=== PATIENT | female | born 2000 | race Caucasian/White ===

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

== ENCOUNTER 2021-05-22 12:58 | Emergency (ER) | payer OTHER, SELFPAY ==
[2021-05-22 14:00] VITALS: BP 143/92; PULSE 74; RESP 16; TEMP 36.8; O2SAT 98; BMI 35.4
[2021-05-22 14:14] LABS: UTC Strep Screen (Rapid) Positive (Negative)
--- NOTE | 2021-05-22 14:51 | HMH.EDUTC ---
[facility] [place] Disposition Clinical Impression: Strep throat Disposition: Home, Self-Care Condition on Discharge: Good Instructions: Strep Throat, DI for Strep Throat Additional Instructions: *Monitor Temp, Over the counter Motrin or Tylenol as directed/as needed Tylenol every 4 hours and Motrin every 6 hours (as long as your family doctor has told you that you can take it) for fever or pain. and straight to ER if unable to lower temp less than 101.0 after medication given *Warm salt water gargles may help to soothe the throat *Throat Lozenges *Warm fluids like tea with honey may help to soothe the throat *Sleep elevated *Humidifier/Vaporizer *Flonase 2 sprays in each nostril daily but be aware that it may take 2-3 days before you notice improvement If you did not take Penicillin shot or was unable to, start taking antibiotic immediately and make sure that you take it for the FULL length of time although you should start to feel better in 24-48 hours *change toothbrush and toothpaste 24-48 hours after starting to take antibiotics so you do not reinfect yourself Monitor Temp. Tylenol and/or Ibuprofen as needed. ER if fever is no less than 101 despite alternating Tylenol and Ibuprofen * Encourage fluids, water, Gatorade, powerade, pedialyte if /toddler/or child *Cold fluids, popsicles and ice cream may feel good on his throat Follow up IMMEDIATELY for new or worsening symptoms or no Noticeable improvement over the next 48-72 hours. 911 for difficulty breathing or swallowing You were tested for today for COVID19 your test result should be back in the next 24-48 hours, you check your results on line at the [facility] You was given a handout with instructions for Self Quarantine and Self isolation for while you wait on test results and what to do if they are positive If you are positive the Health Dept will be contacting you also Make sure to take your Vitamins Vit. C Vit D and Zinc if you can take them Prescriptions: Fluticasone Propionate [Flonase 50mcg nasal spray 16gm] 1 spr NS DAILY #1 each Transmission Status: Pending to [facility] Cefdinir [Omnicef 300mg Capsule] 300 mg PO BID #20 cap Transmission Status: Pending to [facility] Referrals: Abe Erickson JR, MD [Primary Care Provider] - As needed Forms: Work/School Release Time of Disposition: 14:58 Medical Decision Making - Calvin Inquiry Pt receiving controlled substance: No Calvin was queried for this patient: No Vital Signs: 05/22/21 14:00 Temperature 98.2 F Temperature Source Oral Pulse Rate [Right Brachial] 74 Respiratory Rate 16 Blood Pressure [Right Arm] 143/92 H Blood Pressure Mean [Right Arm] 109 Blood Pressure Source [Right Arm] Automatic Cuff Blood Pressure Position [Right Arm] Sitting 02 Sat by Pulse Oximetry 98 Oxygen Delivery Method Room Air - Lab Data Lab results reviewed: Yes: I reviewed the patient's lab results. Lab Results 05/22/21 13:56: Strep Scn Rapid Clinic Positive A Orders (Tests/Meds): ORDERS Category Date Time Status Covid-19 Nasal PCR ([facility]) Routine Lab 05/22/21 13:[address] [facility] [place] HPI - General Stated complaint: covid symptoms Time Seen by Provider: 05/22/21 14:51 Mode of Arrival: Ambulatory Source of Information: Patient Limitations: No Limitations Description of Symptoms (Recalled from Triage Doc. by RN): PATIENT C/O CHILLS, COUGH, SOA, BODY ACHES, SORE THROAT, CONGESTION, NAUSEA, AND LOSS OF SMELL X 2 DAYS HEENT Symptoms (Recalled from RN notes): Yes Resp Symptoms (Recalled from RN notes): Yes Skin Symptoms (Recalled from RN notes): No MS Symptoms (Recalled from RN notes): Yes Functional Status (Recalled from RN notes): WNL - History of Present Illness Provider Complaint: Patient states that she hasnt felt well in several days States that she has had cough, congestion, sore throat, sinus congestion and pressure and noticed yesterday that she was not able to t
[2021-05-22 15:00] VITALS: BP 143/92; PULSE 74; RESP 16; TEMP 36.8; O2SAT 98
== END 2021-05-22 15:05 | disposition home or self-care (01) ==
PROVIDERS: Emergency Provider Nurse Practitioner; PCP Family Medicine
DX: J02.0 Streptococcal pharyngitis (principal); U07.1 COVID-19
CPT/HCPCS: 87880; 99203; C9803; G0463; U0003; U0005

== ENCOUNTER 2021-07-08 10:41 | Emergency (ER) | payer OTHER, SELFPAY ==
[2021-07-08 11:15] VITALS: BP 118/85; PULSE 72; RESP 20; TEMP 37.1; O2SAT 97; BMI 35.0
[2021-07-08 11:30] LABS: UTC Strep Screen (Rapid) Positive (Negative)
--- NOTE | 2021-07-08 12:00 | HMH.EDUTC ---
[facility] [place] Disposition Clinical Impression: Strep throat Disposition: Home, Self-Care Condition on Discharge: Good Instructions: Strep Throat, DI for Strep Throat, Amoxicillin Additional Instructions: *Monitor Temp, Over the counter Motrin or Tylenol as directed/as needed Tylenol every 4 hours and Motrin every 6 hours (as long as your family doctor has told you that you can take it) for fever or pain. and straight to ER if unable to lower temp less than 101.0 after medication given *Warm salt water gargles may help to soothe the throat *Throat Lozenges *Warm fluids like tea with honey may help to soothe the throat *Sleep elevated *Humidifier/Vaporizer *If you did not take Penicillin shot or was unable to, start taking antibiotic immediately and make sure that you take it for the FULL length of time although you should start to feel better in 24-48 hours *change toothbrush and toothpaste 24-48 hours after starting to take antibiotics so you do not reinfect yourself Monitor Temp. Tylenol and/or Ibuprofen as needed. ER if fever is no less than 101 despite alternating Tylenol and Ibuprofen * Encourage fluids, water, Gatorade, powerade, pedialyte if /toddler/or child *Cold fluids, popsicles and ice cream may feel good on his throat Follow up IMMEDIATELY for new or worsening symptoms or no Noticeable improvement over the next 48-72 hours. 911 for difficulty breathing or swallowing Prescriptions: Amoxicillin [Amoxicillin 500mg Cap] 500 mg PO TID #30 cap Transmission Status: Received by [facility] Referrals: Abe Erickson JR, MD [Primary Care Provider] - As needed Time of Disposition: 12:04 Medical Decision Making - Calvin Inquiry Pt receiving controlled substance: No Calvin was queried for this patient: No Vital Signs: 07/08/21 11:15 Temperature 98.7 F Temperature Source Oral Pulse Rate [Right Brachial] 72 Respiratory Rate 20 Blood Pressure [Right Arm] 118/85 Blood Pressure Mean [Right Arm] 96 Blood Pressure Source [Right Arm] Automatic Cuff Blood Pressure Position [Right Arm] Sitting 02 Sat by Pulse Oximetry 97 Oxygen Delivery Method Room Air - Lab Data Lab results reviewed: Yes: I reviewed the patient's lab results. Lab Results 07/08/21 11:19: Strep Scn Rapid Clinic Positive A [facility] [place] HPI - General Stated complaint: sore throat, cough, congestion, bilateral ear ache Time Seen by Provider: 07/08/21 12:01 Mode of Arrival: Ambulatory Source of Information: Patient Limitations: No Limitations Description of Symptoms (Recalled from Triage Doc. by RN): PATIENT C/O SORE THROAT, COUGH, BILATERAL EAR ACHE, NAUSEA AND RUNNY NOSE THAT STARTED WEDNESDAY HEENT Symptoms (Recalled from RN notes): Yes Resp Symptoms (Recalled from RN notes): No Skin Symptoms (Recalled from RN notes): No MS Symptoms (Recalled from RN notes): No Functional Status (Recalled from RN notes): WNL - History of Present Illness Provider Complaint: Patient states that she started feeling bad over the weekend States that she has been having sore throat, runny nose cough, bilateral ear aches and over all not feeling well States that today she was still feeling bad so she came in - Related Data Previous Rx's Medication Instructions Recorded Cefdinir [Omnicef 300mg Capsule] 300 mg PO BID #20 cap 05/22/21 Fluticasone Propionate [Flonase 1 spr NS DAILY #1 each 05/22/21 50mcg nasal spray 16gm] Amoxicillin [Amoxicillin 500mg 500 mg PO TID #30 cap 07/08/21 Cap] Allergies Allergy/AdvReac Type Severity Reaction Status Date / Time azithromycin [AZITHROMYCIN] Allergy Mild Verified 04/24/20 17:19 - Worker's Comp Is this a Worker's Comp case?: No [facility] History - Hepatitis A Screen Drug use history?: No High risk sexual behaviors?: No History of sexually transmitted infection?: No Currently employed?: No Childcare worker?: No Do you have indoor plumbing?: Yes Do you have electricity?: Yes Attesta
[2021-07-08 12:38] VITALS: BP 118/85; PULSE 72; RESP 20; TEMP 37.1; O2SAT 97
== END 2021-07-08 12:42 | disposition home or self-care (01) ==
PROVIDERS: Emergency Provider Nurse Practitioner; PCP Family Medicine
DX: J02.0 Streptococcal pharyngitis (principal)
CPT/HCPCS: 87880; 99202; G0463

== ENCOUNTER 2021-11-09 10:13 | Emergency (ER) | payer OTHER, SELFPAY ==
[2021-11-09 10:43] VITALS: BP 122/85; PULSE 93; RESP 18; TEMP 36.9; O2SAT 98; BMI 34.3
--- NOTE | 2021-11-09 10:47 | HMH.EDUTC ---
[facility] [place] Disposition Clinical Impression: Viral upper respiratory illness Disposition: Home, Self-Care Condition on Discharge: Good Instructions: Sore Throat Additional Instructions: *Monitor Temp, Over the counter Motrin or Tylenol as directed/as needed Tylenol every 4 hours and Motrin every 6 hours (as long as your family doctor has told you that you can take it) for fever or pain. and straight to ER if unable to lower temp less than 101.0 after medication given *Warm salt water gargles may help to soothe the throat *Throat Lozenges *Warm fluids like tea with honey may help to soothe the throat *Sleep elevated *Humidifier/Vaporizer Your throat swab was sent for culture. Those results are typically sent to your primary care. Be sure to follow up in 2-3 days with your family doctor/primary care physician if no improvement so they can review those result and treat if necessary. If you don?t have a primary care doctor, I recommend you get one but in the mean time, you will have to return to a walk in clinic Follow up IMMEDIATELY for new or worsening symptoms or no Noticeable improvement over the next 48-72 hours. 911 for difficulty breathing or swallowing Referrals: Abe Erickson JR, MD [Primary Care Provider] - As needed Time of Disposition: 10:55 Medical Decision Making - Calvin Inquiry Pt receiving controlled substance: No Calvin was queried for this patient: No Vital Signs: 11/09/21 10:43 Temperature 98.5 F Temperature Source Oral Pulse Rate [Left] 93 H Respiratory Rate 18 Blood Pressure [Right Arm] 122/85 Blood Pressure Mean [Right Arm] 97 02 Sat by Pulse Oximetry 98 - Lab Data Lab results reviewed: Yes: I reviewed the patient's lab results. Lab Results 11/09/21 10:32: Group A Strep Rapid Negative Orders (Tests/Meds): ORDERS Category Date Time Status Strep Screen Confirmation Stat Micro 11/09/21 10:32 Received [facility] [place] HPI - General Stated complaint: congestion, cough, sore throat Time Seen by Provider: 11/09/21 10:48 Mode of Arrival: Ambulatory Source of Information: Patient Limitations: No Limitations Description of Symptoms (Recalled from Triage Doc. by RN): since pt has been having sore throat, cough , congestion HEENT Symptoms (Recalled from RN notes): Yes Resp Symptoms (Recalled from RN notes): Yes Skin Symptoms (Recalled from RN notes): No MS Symptoms (Recalled from RN notes): No Functional Status (Recalled from RN notes): wnl - History of Present Illness Provider Complaint: Patient states that she started having sore throat on Wednesday and it has continued to get worse states that feels like it did when she had strep throat States that she is also having some nasal congestion so she came in to get checked - Related Data Previous Rx's Medication Instructions Recorded Cefdinir [Omnicef 300mg Capsule] 300 mg PO BID #20 cap 05/22/21 Fluticasone Propionate [Flonase 1 spr NS DAILY #1 each 05/22/21 50mcg nasal spray 16gm] Amoxicillin [Amoxicillin 500mg 500 mg PO TID #30 cap 07/08/21 Cap] Allergies Allergy/AdvReac Type Severity Reaction Status Date / Time azithromycin [AZITHROMYCIN] Allergy Mild Verified 11/09/21 10:43 - Worker's Comp Is this a Worker's Comp case?: No [facility] History - Hepatitis A Screen Attestation statement:: This patient has been screened for Hepatitis A risk factors. I have reviewed the patient's past medical history: Yes Medical History: Denies:: Cancer, Diabetes Mellitus Type 1, Diabetes Mellitus Type 2, MRSA Laterality Cases: Bilateral: Tonsillectomy Other Surgeries: Yes: No Previous Surgery, Other Amputation: No Fractures: No Comment: nose - Social History Smoking Status: Never smoker Alcohol Intake: never Alcohol Intake Frequency:: other Substance Use Type: denies use Occupational Status: unemployed Housing: house Household Members: family Family Hx:: Cancer, Hypertension, Diabetes ROS Obtained: Yes All
[2021-11-09 10:50] LABS: Strep Scrn Group A (Rapid) Negative (Negative)
[2021-11-09 11:01] VITALS: BP 122/85; PULSE 93; RESP 18; TEMP 36.9
== END 2021-11-09 11:10 | disposition home or self-care (01) ==
PROVIDERS: Emergency Provider Nurse Practitioner; PCP Family Medicine
DX: J02.9 Acute pharyngitis, unspecified (principal); J06.9 Acute upper respiratory infection, unspecified; Z79.51 Long term (current) use of inhaled steroids; Z82.49 Family history of ischemic heart disease and other diseases of the circulatory system; Z80.9 Family history of malignant neoplasm, unspecified; Z83.3 Family history of diabetes mellitus
CPT/HCPCS: 87430; 99213; G0463

== ENCOUNTER → 2021-12-04 14:57 | Outpatient (CLI) | payer OTHER, SELFPAY ==
--- NOTE | 2021-12-04 14:57 | US_ITS ---
PROCEDURE INFORMATION: Exam: US Right Breast, Complete Exam date and time: 12/04/2021 3:14 PM Age: 21 years old Clinical indication: Breast pain; Right; possible lump TECHNIQUE: Imaging protocol: Complete ultrasound of all four quadrants of the Right breast and the retroareolar regions, including ultrasound of the axilla when performed. COMPARISON: No relevant prior studies available. FINDINGS: Breast: Sonographic images of the right breast including the retroareolar region, all 4 quadrants and the axilla do not demonstrate any solid or cystic masses. No architectural distortion or acoustical shadowing. No skin thickening or axillary adenopathy. IMPRESSION: No sonographic evidence of malignancy. Annual mammographic screening is recommended unless otherwise clinically indicated. Further evaluation of a palpable abnormality should be based on clinical grounds regardless of radiographic findings or lack thereof. ASSESSMENT: BI-RADS Category 1: Negative
== END ==
PROVIDERS: PCP Family Medicine; Visit Provider Nurse Practitioner Obstetrics & Gynecology
DX: N63.10 Unspecified lump in the right breast, unspecified quadrant (principal); N64.4 Mastodynia
CPT/HCPCS: 76641

== ENCOUNTER → 2022-02-13 08:05 | Outpatient (CLI) | payer OTHER, SELFPAY ==
[2022-02-13 09:56] LABS: HCG,Quantitative 1332 mIU/ml (0-5.42)
== END ==
PROVIDERS: PCP Family Medicine; Visit Provider Nurse Practitioner Obstetrics & Gynecology
DX: N92.6 Irregular menstruation, unspecified (principal)
CPT/HCPCS: 36415; 84702

== ENCOUNTER → 2022-02-25 15:16 | Outpatient (CLI) | payer OTHER, SELFPAY ==
[2022-02-25 17:25] LABS: Basophils # 0.1 K/mm3 (0-0.2); Basophils % 0.5 % (0.1-2.0); Eosinophils # 0.1 K/mm3 (0.0-0.4); Hematocrit 38.4 % (37.0-47.0); Hemoglobin 12.4 g/dL (12.2-16.2); Lymphocytes # 1.8 K/mm3 (0.7-4.5); Lymphocytes % 20.3 % (10-50); Mean Corpuscular HGB Conc 32.3 g/dL (31.8-35.4); Mean Corpuscular Hemoglobin 30.9 pg (27.0-31.2); Mean Corpuscular Volume 95.5 fl (81-99); Mean Platelet Volume 8.5 fl (7.4-10.4); Monocytes # 0.4 K/mm3 (0.1-1.0); Monocytes % 4.2 % (1.7-9.3); Neutrophils # 6.7 K/mm3 (1.8-7.8); Platelet Count 255 K/mm3 (142-424); Red Blood Count 4.01 M/mm3 (4.20-5.40); Red Cell Distribution Width 13.8 % (11.5-17.5)
[2022-02-27 09:46] LABS: Hepatitis B Surface Antigen Negative (Negative); Hepatitis C Antibody <0.1 s/co ratio (0.0-0.9)
[2022-02-27 11:16] LABS: HIV Screen 4th Generation wRfx Non Reactive (Non Reactive); Rapid Plasma Reagin Ab Titer Non Reactive (NonRea<1:1)
[2022-02-27 22:36] LABS: Neisseria gonorrhoeae, NAA Negative (Negative)
== END ==
PROVIDERS: Visit Provider Obstetrics & Gynecology
DX: Z34.90 Encounter for supervision of normal pregnancy, unspecified, unspecified trimester (principal)
CPT/HCPCS: 36415; 85025; 86592; 86703; 86762; 86850; 87086; 87340; 87380; 87491; 87591; G0432

== ENCOUNTER 2022-03-04 07:58 | Emergency (ER) | payer OTHER, SELFPAY ==
[2022-03-04 08:04] VITALS: BP 117/71; PULSE 85; RESP 17; TEMP 36.6; O2SAT 94; BMI 33.3
--- NOTE | 2022-03-04 08:10 | PC.NURSE ---
at the bedside
--- NOTE | 2022-03-04 08:13 | HMH.EDGENADL ---
Discharge Plan Disposition Patient Disposition: Home, Self-Care Condition: Good Prescriptions Prescriptions: New nitrofurantoin monohyd/m-cryst [Macrobid] 100 mg capsule 100 mg PO BID 5 Days Qty: 10 0RF Rx Instructions: must administer with a meal/food No Action PNV cmb#95-ferrous fumarate-FA 28 mg iron- 800 mcg tablet 1 tab PO DAILY Referrals Follow up/Referrals: Provider,Referral, MD [Referring] - See instructions Activity Restrictions/Add. Instructions Additional Instructions/Restrictions: At this time was felt you are safe to be discharged home. If new or worsening symptoms please do not hesitate to return to the emergency department. Please call your OB to schedule an appointment for follow-up. Clinical Impressions Clinical Impression: , Vaginal bleeding, UTI (urinary tract infection) Discharge ED Provider: Nas Cruz General Adult HPI General Chief complaint: Vaginal Bleeding Stated complaint: 8 weeks , lower back pain Time Seen by Provider: 03/04/22 09:00 Mode of Arrival: Ambulatory Source of Information: Patient Limitations: No Limitations Description of Symptoms (Recalled from ER Triage Doc. by RN): pt to ed c/o lower back pain, abd cramping and vaginal bleeding. pt states she is approx 8w . pt states she had mild bleeding with her first . pt denies any falls or trauma to her abd. History of Present Illness HPI narrative: Patient is a previously healthy 21-year-old female G2, P1 who presents to the emergency department for evaluation of vaginal bleeding and cramping. Onset was acute occurring earlier this morning. Since then patient has had bleeding while wiping after using the bathroom. Denies passage of tissue or clots. Denies shortness of breath, fevers, other acute symptoms at this time. No dysuria. No vomiting. Related Data Home Medications Medication Instructions Recorded Confirmed vit no.95-ferrous 1 tab PO DAILY 02/25/22 02/25/22 fumarate 28 mg-folic acid 800 mcg tablet Previous Rx's Medication Instructions Recorded nitrofurantoin 100 mg PO BID 5 days #10 caps 03/04/22 monohydrate/macrocrystals 100 mg capsule (Macrobid) Allergies Allergy/AdvReac Type Severity Reaction Status Date / Time azithromycin [AZITHROMYCIN] Allergy Mild Verified 02/25/22 14:41 PFSH PFS Medical History (Updated 03/04/22 @ 10:44 by Nas Cruz MD) Social History (Updated 02/25/22 @ 15:30 by Jocelynn Phillips DO) Smoking Status: Never smoker second hand exposure: No alcohol intake: never substance use type: denies use current occupational status: unemployed household members: family housing: house current occupational exposures/hazards: No ROS Obtained: Yes All systems reviewed & no additional complaints except as documented Physical Exam General General appearance: alert and in no apparent distress Head Head exam: atraumatic and normocephalic Eye Eye exam: Present PERRL and EOMI ENT ENT exam: Present mucous membranes moist Neck Neck exam: Present normal inspection Chest Chest inspection: Present normal inspection Respiratory Respiratory exam: Present normal lung sounds bilaterally; Absent respiratory distress Cardiovascular Cardiovascular exam: Present regular rate and normal rhythm Abdominal Exam Abdominal exam: Present soft; Absent tenderness Extremities Exam Extremities exam: Present normal inspection Neurological Exam Neurological exam: Present alert, oriented X3 and CN II-XII intact Skin Skin exam: Present warm and dry Medical Decision Making Medical Records Medical records reviewed: Yes I reviewed the patient's medical records. Calvin Inquiry Pt receiving controlled substance: No Vital Signs: 03/04/22 08:04 Temperature 97.8 F Temperature Source Oral Pulse Rate [Left Radial] 85 Respiratory Rate 17 Blood Pressure [Right Arm] 117/71 Blood Pressur
--- NOTE | 2022-03-04 08:14 | PC.NURSE ---
called lab for blood collection
--- NOTE | 2022-03-04 08:22 | PC.NURSE ---
lab at the bedside for blood collection
--- NOTE | 2022-03-04 08:33 | US_ITS ---
FINAL REPORT CLINICAL HISTORY: upper abd pain since this AM; r/o ectopic FINDINGS: PELVIC ULTRASOUND A single living intrauterine is present. Cardiac activity is confirmed at 161 beats per minute. Estimated gestational age is 7 weeks 5 days based on the crown-rump length of 14 mm. There is a focus of fluid adjacent to the gestational sac measuring 1.7 x 0.7 cm that may represent a small subchorionic hemorrhage. The left ovary is unremarkable. There is a 2.2 cm complex cyst in the right ovary that may represent a corpus luteum cyst. IMPRESSION: Single living IUP with an estimated gestational age of 7 weeks 5 days. Possible small subchorionic hemorrhage adjacent to the gestational sac. Probable corpus luteum cyst in the right ovary. Reviewed, Interpreted and Dictated by Emilio Orona III, MD Transcribed by Tip Velazquez Authenticated and [facility]
--- NOTE | 2022-03-04 08:34 | PC.NURSE ---
radiology aware of US
[2022-03-04 08:35] LABS: Microscopic, Urine URINE MICROSCOPIC (MICROSCOPIC)
[2022-03-04 08:37] LABS: Basophils % 0.6 % (0.1-2.0); Eosinophils # 0.1 K/mm3 (0.0-0.4); Eosinophils % 1.5 % (0.1-12.0); Hematocrit 38.3 % (37.0-47.0); Hemoglobin 12.2 g/dL (12.2-16.2); Lymphocytes # 1.4 K/mm3 (0.7-4.5); Lymphocytes % 21.6 % (10-50); Mean Corpuscular HGB Conc 31.7 g/dL (31.8-35.4); Mean Corpuscular Hemoglobin 30.2 pg (27.0-31.2); Mean Corpuscular Volume 95.2 fl (81-99); Monocytes # 0.3 K/mm3 (0.1-1.0); Monocytes % 4.6 % (1.7-9.3); Neutrophils # 4.6 K/mm3 (1.8-7.8); Neutrophils % 71.7 % (37.0-80.0); Platelet Count 239 K/mm3 (142-424); Red Blood Count 4.03 M/mm3 (4.20-5.40); Red Cell Distribution Width 13.9 % (11.5-17.5); White Blood Count 6.4 K/mm3 (4.5-13.0)
[2022-03-04 08:38] LABS: Appearance,Urine SL CLOUDY (Clear); Bilirubin,Urine Negative (Negative); Blood, Urine 3+ (Negative); Color,Urine YELLOW (Yellow); Glucose,Urine (UA) Negative (Negative); Ketones,Urine Negative (Negative); Leukocyte Esterase,Urine 1+ (Negative); Nitrate,Urine Negative (Negative); Protein,Urine Negative (Negative)
[2022-03-04 08:50] LABS: Chloride 108 mmol/L (98-107); Sodium 138 mmol/L (136-145)
[2022-03-04 08:52] LABS: Alanine Aminotransferase 15 U/L (12-78); Aspartate Amino Transferase 19 U/L (14-36); Blood Urea Nitrogen 11 mg/dl (7-17); Creatinine Clearance Estimated 201 mL/min (50-200); Estimated Glomerular Filt Rate 127 ml/min (>60); GFR (African American) 154 ML/MIN (>60)
[2022-03-04 08:53] LABS: Albumin Level 4.3 g/dl (3.5-5.0); Albumin/Globulin Ratio 1.3 (1.1-1.8); Alkaline Phosphatase 74 U/L (38-126); Bilirubin,Total 0.1 mg/dl (0.2-1.3); Calcium 9.1 mg/dl (8.4-10.2); Carbon Dioxide 22 mmol/L (22.0-30.0); Globulin 3.3 g/dL (1.3-3.2); Glucose 108 mg/dl (74-100); INR 0.92 (0.9-1.1); Prothrombin Time 10.5 seconds (10.1-12.5); Total Protein,Serum 7.6 g/dl (6.3-8.2)
--- NOTE | 2022-03-04 08:57 | PC.NURSE ---
pt to u/s at this time
[2022-03-04 09:07] LABS: Bacteria,Urine 1+ /lpf
--- NOTE | 2022-03-04 09:09 | US_ITS ---
FINAL REPORT CLINICAL HISTORY: upper R quadrant pain, pain after eating FINDINGS: ULTRASOUND RIGHT UPPER QUADRANT Sonographic imaging of the right upper quadrant was obtained. The pancreas is partially obscured. The liver has increased echogenicity consistent with fatty infiltration. There is sludge within the gallbladder with no evidence of gallstones. There is no gallbladder wall thickening. There is no biliary ductal dilatation. The common duct is normal at 2 mm. Limited images of the right kidney are unremarkable. IMPRESSION: Fatty liver. Sludge within the gallbladder with no evidence of gallstones. Reviewed, Interpreted and Dictated by Emilio Orona III, MD Transcribed by Gricel Adan Authenticated and [facility]
--- NOTE | 2022-03-04 09:09 | PC.NURSE ---
stefanie from ultrasound called at this time, report transvaginal ultrasound is complete, small subchorionic hemorrhage noted but other normal. States pt is c/o RUQ pain and pain after eating, asking if we would want and gallbladder ultrasound while pt up there. Notified ER MD of the above, he gave verbal order for gallbladder ultrasound, order placed in the computer.
[2022-03-04 09:34] LABS: HCG,Quantitative 69712 mIU/ml (0-5.42)
--- NOTE | 2022-03-04 10:11 | PC.NURSE ---
rounded on pt at this time. no needs voiced. updated on POC.
[2022-03-04 11:03] VITALS: BP 116/71; PULSE 64; RESP 16; TEMP 36.7; O2SAT 98
== END 2022-03-04 11:12 | disposition home or self-care (01) ==
PROVIDERS: Emergency Provider Emergency Medicine; PCP Family Medicine
DX: O23.41 Unspecified infection of urinary tract in pregnancy, first trimester (principal); N39.0 Urinary tract infection, site not specified; O46.91 Antepartum hemorrhage, unspecified, first trimester; R10.11 Right upper quadrant pain
CPT/HCPCS: 36415; 76705; 76817; 80053; 81001; 84702; 85025; 85610; 86850; 87086; 99285

== ENCOUNTER → 2022-06-02 12:43 | Outpatient (CLI) | payer OTHER, SELFPAY ==
--- NOTE | 2022-06-02 12:44 | US_ITS ---
FINAL REPORT CLINICAL HISTORY: 20 week anatomy scan FINDINGS: There is a single live intrauterine gestation. Presentation is breech. The cervix is closed and measures 3.96. Placenta is posterior, grade 1. movement is noted. Heart rate is detected at 138 beats per minute. Three-vessel cord with satisfactory umbilical cord insertion. Four-chamber heart is noted. ABDOMEN: Both kidneys are unremarkable. Stomach is unremarkable. SPINE: No anomalies identified. AMNIOTIC FLUID: Appropriate amount. MEASUREMENTS: ULTRASOUND AGE: 20 weeks 6 days. GESTATION AGE: 20 weeks 4 days. ESTIMATED WEIGHT: 381 g GROWTH PERCENTILE: 60 % BPD: 4.90 cm corresponding to 20 weeks 6 days. OFD: 6.23 cm corresponding to 21 weeks 0 days. HC: 17.61 cm corresponding to 20 weeks 1 day. AC: 15.69 cm corresponding to 20 weeks 6 days. FL: 3.49 cm corresponding to 21 weeks 1 day. CEREBELLUM: 2.03 cm corresponding to 20 weeks 5 days. HUMERUS: 3.22 cm corresponding to 20 weeks 6 days. HC/AC: 1.12 CI: 79% FL/BPD: 71% FL/AC: 22% IMPRESSION: Single living IUP with an ultrasound age of 20 weeks 6 days. Reviewed, Interpreted and Dictated by Nano Burrell MD Transcribed by Yolis Sen Authenticated and [facility]
== END ==
PROVIDERS: PCP Family Medicine; Visit Provider Obstetrics & Gynecology
DX: Z34.90 Encounter for supervision of normal pregnancy, unspecified, unspecified trimester (principal); Z3A.20 20 weeks gestation of pregnancy
CPT/HCPCS: 76811

== ENCOUNTER → 2022-07-06 14:11 | Outpatient (CLI) | payer OTHER, SELFPAY ==
[2022-07-09 16:23] LABS: Parvovirus B19, IgG 6.1 index (0.0-0.8); Parvovirus B19, IgM 0.7 index (0.0-0.8)
== END ==
PROVIDERS: PCP Family Medicine; Visit Provider Obstetrics & Gynecology
DX: Z34.90 Encounter for supervision of normal pregnancy, unspecified, unspecified trimester (principal)
CPT/HCPCS: 36415; 86747

== ENCOUNTER → 2022-07-14 10:15 | Outpatient (CLI) | payer OTHER, SELFPAY ==
[2022-07-14 11:06] LABS: Basophils % 0.5 % (0.1-2.0); Eosinophils # 0.1 K/mm3 (0.0-0.4); Eosinophils % 1.2 % (0.1-12.0); Hematocrit 34.2 % (37.0-47.0); Hemoglobin 11.1 g/dL (12.2-16.2); Lymphocytes # 1.8 K/mm3 (0.7-4.5); Lymphocytes % 22.3 % (10-50); Mean Corpuscular HGB Conc 32.6 g/dL (31.8-35.4); Mean Corpuscular Hemoglobin 29.9 pg (27.0-31.2); Mean Corpuscular Volume 91.8 fl (81-99); Mean Platelet Volume 7.5 fl (7.4-10.4); Monocytes # 0.4 K/mm3 (0.1-1.0); Monocytes % 4.4 % (1.7-9.3); Neutrophils # 5.7 K/mm3 (1.8-7.8); Neutrophils % 71.5 % (37.0-80.0); Platelet Count 285 K/mm3 (142-424); Red Blood Count 3.73 M/mm3 (4.20-5.40); Red Cell Distribution Width 14.1 % (11.5-17.5); White Blood Count 7.9 K/mm3 (4.5-13.0)
[2022-07-14 11:16] LABS: Glucose,Fasting 92 mg/dl (74-100)
[2022-07-14 12:56] LABS: Glucose 1 Hour 107 mg/dL (74-100)
== END ==
PROVIDERS: PCP Family Medicine; Visit Provider Obstetrics & Gynecology
DX: Z34.90 Encounter for supervision of normal pregnancy, unspecified, unspecified trimester (principal); Z3A.23 23 weeks gestation of pregnancy
CPT/HCPCS: 36415; 82951; 85025

== ENCOUNTER 2022-08-31 09:51 | Outpatient (CLI) | payer OTHER, SELFPAY ==
[2022-08-31 10:02] VITALS: BMI 35.0
[2022-08-31 10:17] VITALS: BP 111/83; PULSE 99; RESP 17; TEMP 36.9; O2SAT 95; BMI 35.0
[2022-08-31 10:19] LABS: Microscopic, Urine URINE MICROSCOPIC (MICROSCOPIC)
[2022-08-31 10:30] LABS: Appearance,Urine CLEAR (Clear); Blood, Urine Negative (Negative); Color,Urine YELLOW (Yellow); Glucose,Urine (UA) Negative (Negative); Ketones,Urine Negative (Negative); Leukocyte Esterase,Urine 2+ (Negative); Nitrate,Urine Negative (Negative); Protein,Urine Negative (Negative)
[2022-08-31 10:40] LABS: Bilirubin,Urine Negative (Negative)
[2022-08-31 10:42] LABS: Barbiturates Screen,Urine Negative ng/ml (<200)
[2022-08-31 10:43] LABS: Benzodiazepines Screen,Urine Negative ng/ml (<200)
[2022-08-31 10:44] LABS: Amphetamine/Metha Screen,Urine Negative ng/ml (<1000); Methadone Screen,Urine Negative ng/ml (<300)
[2022-08-31 10:45] LABS: Cannabinoid Screen,Urine Negative ng/ml (<50)
[2022-08-31 10:46] LABS: Cocaine Screen,Urine Negative ng/ml (<300); Opiate Screen,Urine Negative ng/ml (<300)
[2022-08-31 10:47] LABS: Phencyclidine Screen,Urine Negative ng/ml (<25)
[2022-08-31 11:11] LABS: Squamous Epithelial Cell,Urine 20-50 #/hpf (0-5)
[2022-08-31 11:12] LABS: Bacteria,Urine Trace /lpf
== END 2022-08-31 11:47 | disposition home or self-care (01) ==
LOC: OBOUT 09:54 → OB 09:54
PROVIDERS: PCP Family Medicine; Visit Provider Obstetrics & Gynecology
DX: O26.893 Other specified pregnancy related conditions, third trimester (principal); Z3A.33 33 weeks gestation of pregnancy; R10.2 Pelvic and perineal pain
CPT/HCPCS: 59025; 80305; 81001; 87086; 96365; G0463

== ENCOUNTER → 2022-09-22 10:22 | Outpatient (CLI) | payer OTHER, SELFPAY | PROVIDERS: Visit Provider Obstetrics & Gynecology | DX: Z34.90 Encounter for supervision of normal pregnancy, unspecified, unspecified trimester (principal) | CPT/HCPCS: 86403 ==

== ENCOUNTER 2022-10-09 05:00 | Inpatient (IN) | payer OTHER, SELFPAY ==
[2022-10-09 05:10] VITALS: BMI 35.4
[2022-10-09 05:59] LABS: Coronavirus 19, PCR Not Detected (NotDetected); Influenza A, PCR Not Detected (NotDetected); Influenza B, PCR Not Detected (NotDetected)
[2022-10-09 06:03] LABS: Microscopic, Urine URINE MICROSCOPIC (MICROSCOPIC)
[2022-10-09 06:05] LABS: Basophils % 0.3 % (0.1-2.0); Eosinophils # 0.1 K/mm3 (0.0-0.4); Eosinophils % 0.7 % (0.1-12.0); Hematocrit 34.3 % (37.0-47.0); Hemoglobin 11.1 g/dL (12.2-16.2); Lymphocytes # 1.7 K/mm3 (0.7-4.5); Lymphocytes % 22.9 % (10-50); Mean Corpuscular HGB Conc 32.5 g/dL (31.8-35.4); Mean Corpuscular Hemoglobin 28.9 pg (27.0-31.2); Mean Corpuscular Volume 88.9 fl (81-99); Mean Platelet Volume 8.4 fl (7.4-10.4); Monocytes # 0.5 K/mm3 (0.1-1.0); Monocytes % 6.2 % (1.7-9.3); Neutrophils # 5.1 K/mm3 (1.8-7.8); Neutrophils % 69.9 % (37.0-80.0); Platelet Count 264 K/mm3 (142-424); Red Blood Count 3.86 M/mm3 (4.20-5.40); Red Cell Distribution Width 15.6 % (11.5-17.5); White Blood Count 7.4 K/mm3 (4.8-10.8)
[2022-10-09 06:14] LABS: Appearance,Urine SL CLOUDY (Clear); Bilirubin,Urine Negative (Negative); Blood, Urine Negative (Negative); Color,Urine YELLOW (Yellow); Glucose,Urine (UA) Negative (Negative); Ketones,Urine Negative (Negative); Leukocyte Esterase,Urine 1+ (Negative); Nitrate,Urine Negative (Negative); Protein,Urine Negative (Negative)
[2022-10-09 06:25] VITALS: BP 124/85; PULSE 77; RESP 18; TEMP 36.8; O2SAT 98; BMI 35.4
[2022-10-09 06:27] LABS: Amphetamine/Metha Screen,Urine Negative ng/ml (<1000)
[2022-10-09 06:28] LABS: Barbiturates Screen,Urine Negative ng/ml (<200); Benzodiazepines Screen,Urine Negative ng/ml (<200)
[2022-10-09 06:29] LABS: Cannabinoid Screen,Urine Negative ng/ml (<50)
[2022-10-09 06:30] LABS: Cocaine Screen,Urine Negative ng/ml (<300); Methadone Screen,Urine Negative ng/ml (<300)
[2022-10-09 06:31] LABS: Opiate Screen,Urine Negative ng/ml (<300)
[2022-10-09 06:32] LABS: Phencyclidine Screen,Urine Negative ng/ml (<25)
[2022-10-09 06:47] LABS: Bacteria,Urine Trace /lpf
--- NOTE | 2022-10-09 07:11 | EXP.OB.APHP ---
OB - H&P: HPI Antepartum History of Present Illness Chief complaint: Elective induction of labor History of present illness: Ms Abrahan Peguero is a 22 yo at 39w0d who presents for elective induction of labor. She reports irregular contractions and pelvic pressure. Baby is very active. GBS negative. History of Present Criteria for establishing EDC:: based on 1st trimester US only care: good care Ultrasounds: normal mid trimester US Obstetrical complications: none Medical complications: none Labs Blood type: O (+) positive Rubella: immune RPR/VDRL: nonreactive GBS status: negative HBsAG: negative PFSH PFS Disclaimer: The information contained in this section may have been updated after the patient was seen, as this information can be updated by other users. Medical History (Updated 10/09/22 @ 07:27 by Jocelynn Phillips DO) Encounter for elective induction of labor Parvovirus B19 infection complicating with 39 completed weeks gestation Screening for genetic disease carrier status Vaginal bleeding affecting early Social History Smoking Status: Never smoker second hand exposure: No alcohol intake: never substance use type: denies use current occupational status: unemployed Travel in the last 8 weeks: None household members: family housing: house current occupational exposures/hazards: No Review of Systems Review of Systems Review of systems:: pertinent systems reviewed and negative unless documented below Meds Home Medications and Allergies Home Medications Medication Instructions Recorded Confirmed Type vit no.95-ferrous 1 tab PO DAILY 02/25/22 10/05/22 History fumarate 28 mg-folic acid 800 mcg tablet New Prescriptions to Start Prescriptions: Allergies Allergy/AdvReac Type Severity Reaction Status Date / Time azithromycin [AZITHROMYCIN] Allergy Mild Verified 10/05/22 12:01 OB - H&P: Exam Physical Exam Vital signs: Temp Pulse Resp BP Pulse Ox 98.3 F 77 18 124/85 98 10/09/22 06:25 10/09/22 06:25 10/09/22 06:25 10/09/22 06:25 10/09/22 06:25 Constitutional no acute distress Routine HEENT Exam Head: Present normocephalic and atraumatic Eye: Absent conjunctivae pink ENT: Present mucous membranes moist Routine Neck Exam Present full ROM Routine Respiratory Exam Present CTA bilaterally and normal respiratory effort Routine Cardiovascular Exam Present RRR Routine Abdominal Exam Present soft (Gravid); Absent tenderness Routine Rectal Exam Patient deferred: visual exam Routine Exam External: Present normal urethra appearance; Absent erythema, tenderness, lesions or lacerations Routine Extremities Exam Present full ROM; Absent edema or calf tenderness Routine Neurological Exam Present alert, oriented X3 and moving all extremities Routine Psychiatric Exam Present normal affect and cooperative Detailed Labor and Delivery Exam Dilation (cm): 4 Effacement (%): 70 Cervix position: posterior station: -3 Consistency: soft Membranes: artificially ruptured (Amniotomy performed with [place] at 0640) Amniotic fluid: clear Baseline heart rate: 120 monitor accelerations: Present monitor decelerations: None half-way variability: Moderate (11-25) Contraction frequency (min): 3 OB - Results Labs Labs: Short CBC 10/09/22 Range/Units 05:30 WBC 7.4 (4.8-10.8) K/mm3 Hgb 11.1 L (12.2-16.2) g/dL Hct 34.3 L (37.0-47.0) % Plt Count 264 (142-424) K/mm3 Urine 10/09/22 Range/Units 05:10 Urine Color Yellow (Yellow) Urine Appearance Sl cloudy (Clear) Urine pH 6.0 (5.0-8.5) Ur Specific [place] 1.020 (1.005-1.030) Urine Protein Negative (Negative) Urine Glucose (UA) Negative (Negative) OB - A/P Antepartum (1) with 39 completed weeks g
--- NOTE | 2022-10-09 09:14 | P.PN_ITS ---
[facility] Disclaimer: The information contained in this section may have been updated after the patient was seen, as this information can be updated by other users. Medical History (Updated 10/09/22 @ 07:27 by Jocelynn Phillips DO) Encounter for elective induction of labor Parvovirus B19 infection complicating with 39 completed weeks gestation Screening for genetic disease carrier status Vaginal bleeding affecting early Social History (Updated 10/09/22 @ 07:24 by Dona Arenas RN) Smoking Status: Never smoker second hand exposure: No alcohol intake: never substance use type: denies use current occupational status: unemployed Travel in the last 8 weeks: None household members: family housing: house current occupational exposures/hazards: No [facility] Anesthesia Checklist Patient Identification Patient Identification: Verbal (Name & ) Structural Data Admitted From: Inpatient Planned Operative Procedure/s: labor epidural Consent for Planned Operative Procedure(s) Verified: Yes Airway Assessment C-Spine Mobility Assessed: Yes TMJ Mobility Assessed: Yes Dentition: Good Dentition Neurological Assessment Level of Consciousness: Awake, Alert and Appropriate Anesthesia Plan Anesthesia Risk discussed: Yes Anesthesia Plan: Verified ASA Class: II Anesthesia Type: Epidural
--- NOTE | 2022-10-09 09:37 | EXP.DN ---
Delivery Note Delivery Date:: 10/09/22 Delivery Time:: 09:21 Anesthesia Type: Epidural Was labor medically induced?: No Induction method: per pitocin protocol Gestational age (weeks): 39 delivered prior to 39 weeks?: No Infant Gender: Male at 1 minute: 8 at 5 minutes: 9 Delivery Procedure:: Mom complete with epidural. Pushed for approximately 5 minutes. Head delivered spontaneously over intact perineum in OA position. No nuchal cord. Shoulder dystocia present and resolved with Angelica maneuver and suprapubic pressure within 15 seconds. Anterior shoulder delivered with gentle downward pressure. Posterior shoulder and remainder of body delivered spontaneously. Baby placed on maternal abdomen, mouth and nares bulb suctioned, warmed/dried and stimulated. Delayed cord clamping was performed for 60 seconds. Cord was clamped and cut by father of baby. Cord blood was obtained. Placenta delivered spontaneously and intact. No lacerations. Mom and baby were skin to skin and doing well after delivery. Live male baby (baby's name is Luis Daniel) APGARs 8, 9 EBL 100 mL Placental Delivery Description: Spontaneous
[2022-10-09 19:57] VITALS: BP 128/89; PULSE 71; RESP 18; TEMP 37.1; O2SAT 98
[2022-10-10 04:35] VITALS: BP 138/92; PULSE 75; RESP 18; TEMP 36.8; O2SAT 99
[2022-10-10 08:19] VITALS: BP 123/86; PULSE 82; RESP 18; TEMP 36.8; O2SAT 99
[2022-10-10 08:36] LABS: Basophils % 0.2 % (0.1-2.0); Eosinophils # 0.1 K/mm3 (0.0-0.4); Eosinophils % 0.8 % (0.1-12.0); Hematocrit 32.1 % (37.0-47.0); Hemoglobin 10.4 g/dL (12.2-16.2); Lymphocytes # 2.6 K/mm3 (0.7-4.5); Lymphocytes % 28.9 % (10-50); Mean Corpuscular HGB Conc 32.4 g/dL (31.8-35.4); Mean Corpuscular Hemoglobin 28.8 pg (27.0-31.2); Mean Corpuscular Volume 88.9 fl (81-99); Mean Platelet Volume 8.9 fl (7.4-10.4); Monocytes # 0.4 K/mm3 (0.1-1.0); Monocytes % 4.5 % (1.7-9.3); Neutrophils % 65.7 % (37.0-80.0); Platelet Count 211 K/mm3 (142-424); Red Blood Count 3.61 M/mm3 (4.20-5.40); Red Cell Distribution Width 15.7 % (11.5-17.5); White Blood Count 9.1 K/mm3 (4.8-10.8)
--- NOTE | 2022-10-10 09:43 | EXP.DC.SUM ---
General Admission date:: 10/09/22 Discharge date: 10/10/22 HPI HPI HPI: PPD # 1 s/p Feeling well. Pain is controlled. Light lochia. Breast feeding. Voiding without difficulty and passing flatus. Tolerating regular diet. Denies fever/chills, chest pain and shortness of breath. No headaches, vision changes or swelling. Hospital Course Hospital Course Hospital Course: Ms Abrahan Peguero is a 22 yo at 39w0d who presents for elective induction of labor. She reports irregular contractions and pelvic pressure. Baby is very active. GBS negative. She underwent induction of labor with Pitocin protocol. She had a normal spontaneous vaginal delivery on 10/09/22 at 0921. She delivered a live male baby (baby's name is Luis Daniel) weighing 7 lb 10 oz. APGARs 8, 9. EBL 100 mL. She was doing well . Pain controlled. Breast feeding. Light lochia. Voiding without difficulty and passing flatus. Tolerating regular diet. Vital signs stable, afebrile. Heart was regular rate and rhythm. Lungs were clear to auscultation. Abdomen was soft, nontender. No lower extremity edema. No calf tenderness to palpation. Normal hospital course. She was discharged home on PPD # 1 and instructed to follow-up in the office in 2 weeks or sooner if needed. Exam Data for Last 24 hours Vital signs and Labs for Last 24 Hours: Temp Pulse Resp BP Pulse Ox 98.3 F 82 18 123/86 99 10/10/22 08:19 10/10/22 08:19 10/10/22 08:19 10/10/22 08:19 10/10/22 08:19 Laboratory Results - last 24 hr 10/10/22 08:15: WBC 9.1, RBC 3.61 L, Hgb 10.4 L, Hct 32.1 L, MCV 88.9, MCH 28.8, MCHC 32.4, RDW 15.7, Plt Count 211, MPV 8.9, Neut % (Auto) 65.7, Lymph % (Auto) 28.9, [place] % (Auto) 4.5, Eos % (Auto) 0.8, Baso % (Auto) 0.2, Neut # (Auto) 6.0, Lymph # (Auto) 2.6, [place] # (Auto) 0.4, Eos # (Auto) 0.1, Baso # (Auto) 0.0 I & O for Last 24 hours: Intake & Output 10/07/22 10/08/22 10/09/22 10/10/22 23:59 23:59 23:59 23:59 Weight 200 lb Microbiology Reports for the Last 24 Hours: Microbiology 10/09/22 05:10 Urine,Clean Catch Urine Culture - Preliminary NO GROWTH AFTER 24 HOURS *Routine HEENT Exam Head: Present normocephalic and atraumatic Eye: Absent conjunctivae pink ENT: Present mucous membranes moist and dentition normal *Routine Neck Exam Neck: Present full ROM *Routine Respiratory Exam Respiratory: Present CTA bilaterally and normal respiratory effort *Routine Cardiovascular Exam Cardiovascular: Present RRR *Routine Abdominal Exam Abdominal: Present soft and normoactive bowel sounds; Absent tenderness or distended Comments: Uterine fundus firm and below umbilicus *Routine Rectal Exam Patient deferred: visual exam *Routine Exam Patient deferred: external exam *Routine Extremities Exam Extremities: Present full ROM; Absent edema or calf tenderness *Routine Neurological Exam Neurological: Present alert, oriented X3 and moving all extremities Routine Psychiatric Exam Psychiatric: Present normal affect Results Data Completed and Pending Labs on day of discharge: Labs from last 24 hours 10/10/22 08:15 WBC 9.1 RBC 3.61 L Hgb 10.4 L Hct 32.1 L MCV 88.9 MCH 28.8 MCHC 32.4 RDW 15.7 Plt Count 211 MPV 8.9 Neut % (Auto) 65.7 Lymph % (Auto) 28.9 [place] % (Auto) 4.5 Eos % (Auto) 0.8 Baso % (Auto) 0.2 Neut # (Auto) 6.0 Lymph # (Auto) 2.6 [place] # (Auto) 0.4 Eos # (Auto) 0.1 Baso # (Auto) 0.0 Preliminary micro results at discharge 10/09/22 05:10 Urine Culture - Preliminary Urine,Clean Catch NO GROWTH AFTER 24 HOURS DS: Diagnosis Discharge Diagnosis (1) with 39 completed weeks gestation: Status: Acute (2) Encounter for elective induction of labor: Status: Acute (3) Status post normal vaginal delivery: Status: Acute (4) Acute blood loss anemia: Status: Acute Meds Home Medications and Allergies Home Medications Medic
== END 2022-10-10 13:49 | disposition home or self-care (01) | DRG 806 ==
PROVIDERS: Admitting Provider Obstetrics & Gynecology; Visit Provider Obstetrics & Gynecology
DX: O80 Encounter for full-term uncomplicated delivery (principal); D62 Acute posthemorrhagic anemia; Z37.0 Single live birth; Z23 Encounter for immunization; Z3A.39 39 weeks gestation of pregnancy; O90.81 Anemia of the puerperium
CPT/HCPCS: 59409; 36415; 59025; 80305; 81001; 85025; 86850; 87086; 94761; C9803; G0283; J0595; U0003; U0005

== ENCOUNTER 2023-05-21 22:25 | Emergency (ER) | payer OTHER, SELFPAY ==
[2023-05-21 22:26] VITALS: BP 149/97; PULSE 117; RESP 19; TEMP 36.8; O2SAT 98; BMI 36.3
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
[2023-05-21 23:20] VITALS: BP 138/90; PULSE 100; RESP 18; TEMP 36.8; O2SAT 99
== END 2023-05-21 23:22 | disposition home or self-care (01) ==
PROVIDERS: Emergency Provider Emergency Medicine; PCP Nurse Practitioner
DX: M54.50 Low back pain, unspecified (principal); V47.6XXA Car passenger injured in collision with fixed or stationary object in traffic accident, initial encounter
CPT/HCPCS: 99283

== ENCOUNTER → 2023-06-24 12:05 | Outpatient (CLI) | payer OTHER, SELFPAY ==
--- NOTE | 2023-06-24 12:25 | XR_ITS ---
FINAL REPORT CLINICAL HISTORY: Back pain COMPARISON: None FINDINGS: Two views of the thoracic spine were obtained. There is no evidence of fracture or dislocation. There is 7 degrees of thoracic scoliosis convex to the left. Vertebrae are normal in height. There is no malalignment. 3 views of the lumbar spine were obtained. There is no evidence of fracture or dislocation. Vertebrae are normal in height. There is no malalignment. An IUD is present. IMPRESSION: No acute bony abnormality. Reviewed, Interpreted and Dictated by Juan Manuel Schwartz MD Transcribed by Bibiana Shrestha Authenticated and [facility]
== END ==
LOC: RAD 12:06
PROVIDERS: PCP Nurse Practitioner; Visit Provider Nurse Practitioner
DX: M54.6 Pain in thoracic spine (principal); M54.50 Low back pain, unspecified
CPT/HCPCS: 72083

== ENCOUNTER 2023-11-15 14:00 | Outpatient (POV) | payer OTHER, SELFPAY ==
[2023-11-15 14:14] VITALS: BP 129/89; PULSE 89; RESP 18; O2SAT 97; BMI 32.9
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
== END 2023-11-15 23:59 | disposition home or self-care (01) ==
LOC: SC.PAIN 14:05
PROVIDERS: PCP Nurse Practitioner; Visit Provider Nurse Practitioner Family
DX: M54.50 Low back pain, unspecified (principal); G89.29 Other chronic pain
CPT/HCPCS: 99202; G0463

== ENCOUNTER 2023-11-27 13:00 | Emergency (ER) | payer OTHER, SELFPAY ==
[2023-11-27 13:45] VITALS: BP 123/75; PULSE 87; RESP 20; TEMP 36.8; O2SAT 98; BMI 30.1
[2023-11-27 14:07] LABS: UTC Strep Screen (Rapid) Negative (Negative)
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
[2023-11-27 15:05] VITALS: BP 123/75; PULSE 87; RESP 20; TEMP 36.8; O2SAT 98
== END 2023-11-27 15:05 | disposition home or self-care (01) ==
PROVIDERS: Emergency Provider Nurse Practitioner Family; PCP Nurse Practitioner
DX: M79.632 Pain in left forearm (principal); T22.112A Burn of first degree of left forearm, initial encounter; L03.114 Cellulitis of left upper limb; J02.9 Acute pharyngitis, unspecified; X15.0XXA Contact with hot stove (kitchen), initial encounter
CPT/HCPCS: 87880; 99212; 99214; G0463

== ENCOUNTER 2023-12-15 09:10 | Outpatient (POV) | payer OTHER, SELFPAY ==
[2023-12-15 09:32] VITALS: BP 132/87; PULSE 89; RESP 16; O2SAT 98; BMI 29.9
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
== END 2023-12-15 23:59 | disposition home or self-care (01) ==
PROVIDERS: PCP Nurse Practitioner; Visit Provider Nurse Practitioner Family
DX: M54.50 Low back pain, unspecified (principal)
CPT/HCPCS: 99212; G0463

== ENCOUNTER 2024-01-13 09:23 | Outpatient (POV) | payer OTHER, SELFPAY ==
[2024-01-13 09:35] VITALS: BP 126/79; PULSE 91; RESP 16; O2SAT 100; BMI 29.2
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
== END 2024-01-13 23:59 | disposition home or self-care (01) ==
PROVIDERS: PCP Nurse Practitioner; Visit Provider Nurse Practitioner Family
DX: M54.50 Low back pain, unspecified (principal); G89.29 Other chronic pain
CPT/HCPCS: 99212; G0463

== ENCOUNTER 2024-01-26 10:00 | Outpatient (RCR) | payer OTHER, SELFPAY ==
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
--- NOTE | 2024-01-12 12:51 | HMH.RHREAS ---
Rehab Reassessment Rehab OP Re-assessment Start: 12/13/23 09:57 Freq: Status: Active Protocol: Document 01/12/24 10:12 VALENTINA (Rec: 01/12/24 12:50 VALENTINA [id number]) E-signed By Donita Munoz, PT Oswestry Index Section 1 Pain Intensity The pain comes and goes and is severe Section 2 Personal Care (Washing,Dresing) my way of washing or dressing even though it causes some pain Section 3 Lifting I can lift heavy weights, but it gives me extra pain Section 4 Walking I cannot walk more than 1/2 mile without increasing pain Section 5 Sitting Pain prevents me from sitting for more than 1/2 hour Section 6 Standing I cannot stand more than 1/2 hour without increasing pain Section 7 Sleeping Because of my pain, my normal night's sleep is less than 6 hours sleep Section 8 Social Life Pain has restricted my social life and I do not go out often Section 9 Traveling Pain restricts me to short necessary journeys under 30 minutes Section 10 Changing Degreee of Pain My pain is gradually getting worse Score and Risk Level Oswestry Sc 28 Oswestry Risk Level Severe Disability Rehab Re-assessment Subjective Subjective Pt reports her LBP is getting worse. Pt reports it still hurts to lift her children. Pt reports: Current pain is 6/10 At worst pain 8/10 Pt reports adherence to HEP Objective Objective Notes Lumbar AROM: FLEX= 90 EXT= WNL R SB= WNL L SB= WNL BLE MMTs: Hip FLEX: 5/5 Hip ABD: 5/5 Hip ADD 5/5 Knee FLEX 5/5 Knee EXT: 5/5 Palpation: 1/4 TTP lumbar paraspinals 1/4 TTP lumbar spine Assessment Progress Assessment Slower Than Expected Assessment Notes This is a reassessment for Abrahan Peguero who presents to PT for c/o LBP. Since IE, pt has been seen for 4 visits that have consisted of modalities prn, education, and therapeutic exercises focusing on ROM and core strength. Pt with fair attendance to scheduled PT visits and reports adherence to HEP. Since IE, pt with improvements in lumbar flexion ROM. Pt still presents with impairments present upon IE. Pt would benefit from skilled outpatient physical therapy to address deficits and achieve LTGs. PT educated pt that since her symptoms have not improved/have worsened since IE, pt needs to refer back to PCP for further medical assessment or possible MRI. Patient goals met ST/5 LTG: In progress Plan Plan Continue POC Refer to PCP d/t worsening symptoms. Frequency of Therapy 2x Duration of therapy 3 weeks Time and Billing Re-Eval Time 10 Re-Eval Billing Units 1 PHYSICIAN CERTIFICATION: I certify the specified therapy services for Abrahan Peguero are required, authorized, and reviewed every 30 days.
== END 2024-01-26 10:05 | disposition home or self-care (01) ==
LOC: PT 10:00
PROVIDERS: Visit Provider Nurse Practitioner Family
DX: M54.50 Low back pain, unspecified (principal)
CPT/HCPCS: 97010; 97014; 97035; 97110; 97140; 97163; 97164; G0283

== ENCOUNTER 2024-01-28 16:12 | Outpatient (CLI) | payer OTHER, SELFPAY ==
--- NOTE | 2024-01-28 16:15 | MR_ITS ---
FINAL REPORT TECHNIQUE: Multiplanar MR without contrast CLINICAL HISTORY: LOW BACK PAIN COMPARISON: None FINDINGS: Sagittal images show normal vertebral height. Alignment is normal. Marrow signal pattern is unremarkable. L1-2: Unremarkable L2-3: Unremarkable L3-4: Unremarkable L4-5: Unremarkable L5-S1: A broad-based left paracentral disc protrusion is present with an associated annular tear. There is mild central canal stenosis. The disc protrusion at this level contacts the left S1 nerve root. IMPRESSION: Mild degenerative change at the L5-S1 level with mild central canal stenosis, and a disc protrusion which contacts the left S1 nerve root. Reviewed, Interpreted and Dictated by Nano Burrell MD Transcribed by Kimberli Murray Authenticated and [facility]
== END 2024-01-28 23:59 | disposition home or self-care (01) ==
LOC: RAD 16:13
PROVIDERS: Visit Provider Nurse Practitioner Family
DX: M54.50 Low back pain, unspecified (principal)
CPT/HCPCS: 72148

== ENCOUNTER 2024-02-23 12:43 | Outpatient (POV) | payer OTHER, SELFPAY ==
[2024-02-23 13:01] VITALS: BP 127/83; PULSE 82; RESP 16; TEMP 36.6; O2SAT 100; BMI 28.3
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
== END 2024-02-23 23:59 | disposition home or self-care (01) ==
LOC: SC.PAIN 12:43
PROVIDERS: PCP Nurse Practitioner; Visit Provider Nurse Practitioner Family
DX: M54.50 Low back pain, unspecified (principal); G89.29 Other chronic pain; M51.16 Intervertebral disc disorders with radiculopathy, lumbar region
CPT/HCPCS: 99212; G0463

== ENCOUNTER 2024-03-07 09:21 | Day surgery (SDC) | payer OTHER, SELFPAY ==
[2024-03-07 09:35] VITALS: BP 129/77; PULSE 76; RESP 16; TEMP 36.8; O2SAT 98; BMI 28.3
[2024-03-07 09:52] VITALS: BP 127/84; PULSE 84; RESP 18; O2SAT 100
[2024-03-07] MEDS: methylPREDNISolone ACETATE 80MG/ML VIAL 80 MG (09:52)
[2024-03-07 09:53] VITALS: BP 127/84; PULSE 78; RESP 18; O2SAT 100
[2024-03-07 10:00] VITALS: BP 120/66; PULSE 65; RESP 16; O2SAT 98
--- NOTE | 2024-03-07 10:00 | EXP.PAIN.PRO ---
Procedure Date: 03/07/24 Time: 10:00 Anesthesiologist:: Rudy Grove CRNA Complications:: None Pre-procedure Diagnosis:: Degenerative disc lumbar spine multilevels. Lumbar radiculopathy. Disc bulge L5-S1. Post-procedure Diagnosis:: Same. Indications for Procedure:: Patient is a pleasant 23-year-old female comes our clinic today for a lumbar epidural steroid injection at the L5-S1 level. Patient describes low lumbar back pain with leg radiculopathy. She rates her pain 7/10. Procedure Details:: Procedure: Lumbar epidural steroid injection under fluoroscopy Informed consent was obtained and the risks and benefits of the procedure were explained to the patient. The patient was taken to the procedure room and noninvasive monitors placed, including noninvasive blood pressure cuff and pulse oximeter. The back was viewed using C-arm Fluoroscopy and prepped using Chloraprep as a cleansing solution and the L5-S1 interspace was palpated. Skin and subcutaneous tissues were anesthetized using lidocaine 1.5% and a 25-gauge needle. After this, an 18-gauge Touhy epidural needle was placed into the L5-S1 interspace and advanced using fluoroscopic guidance and loss of resistance to air until the epidural space was encountered. After confirmation of needle placement in the epidural space, with dye, a solution containing normal saline, 3 mL and Depo-Medrol 80 mg were incrementally injected into the lumbar epidural space. The patient tolerated the procedure well with no complications. The patient was observed in the Pain Clinic and then discharged home neurologically intact. Plan and Disposition:: Patient was discharged without incident.
== END 2024-03-07 10:01 | disposition home or self-care (01) ==
PROVIDERS: PCP Nurse Practitioner; Visit Provider Nurse Anesthetist, Certified Registered
DX: M51.16 Intervertebral disc disorders with radiculopathy, lumbar region (principal); M51.37 Other intervertebral disc degeneration, lumbosacral region
CPT/HCPCS: 62323; J1010

== ENCOUNTER 2024-04-03 13:04 | Outpatient (POV) | payer OTHER, SELFPAY ==
--- NOTE | 2024-04-03 13:28 | EXP.PAIN.SOA ---
[facility] Disclaimer: The information contained in this section may have been updated after the patient was seen, as this information can be updated by other users. Medical History Acute blood loss anemia Encounter for insertion of mirena IUD Mirena IUD inserted 05/23/23 Status post normal vaginal delivery Surgical History No significant past surgical history Family History Other Anemia Diabetes Hyperlipidemia Hypertension Social History Smoking Status: Never smoker second hand exposure: No alcohol intake: never substance use type: denies use current occupational status: unemployed Travel in the last 8 weeks: None household members: family housing: house current occupational exposures/hazards: No PM Subjective & Objective Subjective Subjective:: Patient is a pleasant 23-year-old female who presents today for follow-up of lumbar epidural steroid injection L5-S1 on 03/07/2024. Today she rates her pain a 4 out of 10. Patient does state that the injection did help for at least 2 days and rated it at about 50 to 60% improvement. Patient states however that once it wore off she felt like some of her pain was more aggravated. Patient does state that she feels like overall on the right side it is not as bad as the left. Patient has been prescribed methocarbamol 750 mg 3 times daily as needed in the past from our office along with meloxicam 15 mg daily. Patient states that she never got this prescription. Patient states that she had been tried on the diclofenac in the past however did not really notice significant improvement. Patient is requesting refills on both of these medications. Her Calvin has been reviewed and is appropriate. Review of Systems: General: No recent weight changes, no fever, no sleep disturbances Respiratory: No cough, no shortness of air, no recurring pulmonary infections Cardiovascular/peripheral vascular: No chest pain, no palpitations, no edema, no shortness of breath Gastrointestinal: No new onset incontinence, normal bowel movements reported Genitourinary: No new onset incontinence Musculoskeletal: Low back pain Psychiatric: [Normal mood/affect] Neurological: [Denies weakness in extremities], [denies balance issues] Pain at rest (0-10 scale): 4 Objective Objective:: Physical Exam: General: Alert and oriented x3, no acute distress, pleasant and cooperative Lungs: Respirations even and unlabored, symmetrical chest expansion Eyes: PERRL Musculoskeletal: Flexion and extension of lumbar [spine] somewhat guarded secondary to pain Neurological: Speech clear, no gross sensory deficit Has patient had previous pain injection?: Yes Percent improvement in pain since last injection: 50 to 60% Conservative treatment options previously tried: Home exercise plan Length of treatment: Longer than 12 weeks Meds Home Medications and Allergies Home Medications ?Medication ?Instructions ?Recorded ?Confirmed ?Type phentermine 37.5 mg tablet 37.5 mg PO DAILY 05/13/23 03/07/24 History methocarbamol 750 mg tablet 750 mg PO TID 5 days #15 tabs 05/21/23 03/07/24 Rx levonorgestrel 21 mcg/24 hr (up to 1 device intrauterine ONCE 06/16/23 03/07/24 History 8 years) 52 mg intrauterine device (Mirena) mupirocin 2 % topical ointment 1 applic topical BID #22 grams 11/27/23 03/07/24 Rx sulfamethoxazole 800 1 tab PO Q12H 10 days #20 tabs 11/27/23 03/07/24 Rx mg-trimethoprim 160 mg tablet (Bactrim DS) diclofenac sodium 75 mg 75 mg PO BID #28 tabs 12/15/23 03/07/24 Rx tablet,delayed release meloxicam 15 mg tablet 15 mg PO DAILY #14 tabs 01/13/24 03/07/24 Rx New Prescriptions to Start Prescriptions: Allergies Allergy/AdvReac Type Severity Reaction Status Date / Time azithromycin [AZITHROMYCIN] Allergy Mild Verified 03/07/24 09:36 Assessment and Plan *Assessment and plan (1) Lumbar radiculopathy: Status: Acute Category: Medical Code(s): M54.16 - Radiculopathy, lumbar region (2) Degenerative disc disease, lumbar: Status: Acute Category: Medical Code(s): M51.36 - Other intervertebral disc degeneration, lumbar region (3) Lumbar nerve root impingement: Status: Acute Category: Medical Code(s): M54.16 - Radiculopathy, lumbar region Plan Patient did have improvement following her lumbar epidural however it did seem more temporary only really working for a few days. I did discuss with the patient that I will send in refills on the muscle relaxer and meloxicam and provide a 1 month supply of these medications. Patient will return to clinic in 1 month for reevaluation of symptoms and plan of care. Patient has been instructed to contact the clinic with any concerns before the next appointment. Dr. Buenrostro has reviewed this note and agrees with this plan of care. This note was dictated using voice recognition software and make contain errors or omissions. All injections are used with Lidocaine or Bupivacaine and Depo Medrol.
[2024-04-03 14:06] VITALS: BP 120/73; PULSE 72; RESP 16; O2SAT 100; BMI 28.3
== END 2024-04-03 23:59 | disposition home or self-care (01) ==
PROVIDERS: PCP Nurse Practitioner; Visit Provider Nurse Practitioner Family
DX: M51.16 Intervertebral disc disorders with radiculopathy, lumbar region (principal)
CPT/HCPCS: 99212; G0463

== ENCOUNTER 2024-05-10 11:27 | Outpatient (POV) | payer OTHER, SELFPAY ==
[2024-05-10 12:00] VITALS: BP 119/80; PULSE 77; RESP 16; O2SAT 99; BMI 28.7
--- NOTE | 2024-05-10 12:12 | EXP.PAIN.SOA ---
[facility] Disclaimer: The information contained in this section may have been updated after the patient was seen, as this information can be updated by other users. Medical History Acute blood loss anemia Encounter for insertion of mirena IUD Mirena IUD inserted 05/23/23 Status post normal vaginal delivery Surgical History No significant past surgical history Family History Other Anemia Diabetes Hyperlipidemia Hypertension Social History Smoking Status: Never smoker second hand exposure: No alcohol intake: never substance use type: denies use current occupational status: other Travel in the last 8 weeks: None household members: family housing: house current occupational exposures/hazards: No PM Subjective & Objective Subjective Subjective:: Patient is a pleasant 23-year-old female who presents today for medication refill and follow-up. Today she rates her pain a 5 out of 10. She denies any new trauma or injury. She does state that she still has the chronic low back pain with radiating numbness and tingling going down into her left extremity. Patient is currently managed with methocarbamol 750 mg 3 times a day and meloxicam 15 mg daily. She denies any side effects from these medications and is requesting refills. Her Calvin has been reviewed and is appropriate. Review of Systems: General: No recent weight changes, no fever, no sleep disturbances Respiratory: No cough, no shortness of air, no recurring pulmonary infections Cardiovascular/peripheral vascular: No chest pain, no palpitations, no edema, no shortness of breath Gastrointestinal: No new onset incontinence, normal bowel movements reported Genitourinary: No new onset incontinence Musculoskeletal: Low back pain, left leg pain Psychiatric: [Normal mood/affect] Neurological: [Denies weakness in extremities], [denies balance issues] Pain at rest (0-10 scale): 5 Objective Objective:: Physical Exam: General: Alert and oriented x3, no acute distress, pleasant and cooperative Lungs: Respirations even and unlabored, symmetrical chest expansion Eyes: PERRL Musculoskeletal: Flexion and extension of lumbar [spine] somewhat guarded secondary to pain, [antalgic gait noted] positive left leg raise with decreased sensation to light touch and decreased reflexes Neurological: Speech clear, no gross sensory deficit Has patient had previous pain injection?: No Conservative treatment options previously tried: Home exercise plan Length of treatment: Longer than 12 weeks Meds Home Medications and Allergies Home Medications ?Medication ?Instructions ?Recorded ?Confirmed ?Type phentermine 37.5 mg tablet 37.5 mg PO DAILY 05/13/23 05/10/24 History levonorgestrel 21 mcg/24 hr (up to 1 device intrauterine ONCE 06/16/23 05/10/24 History 8 years) 52 mg intrauterine device (Mirena) mupirocin 2 % topical ointment 1 applic topical BID #22 grams 11/27/23 05/10/24 Rx sulfamethoxazole 800 1 tab PO Q12H 10 days #20 tabs 11/27/23 05/10/24 Rx mg-trimethoprim 160 mg tablet (Bactrim DS) diclofenac sodium 75 mg 75 mg PO BID #28 tabs 12/15/23 05/10/24 Rx tablet,delayed release meloxicam 15 mg tablet 15 mg PO DAILY #30 tabs 04/03/24 05/10/24 Rx methocarbamol 750 mg tablet 750 mg PO TID PRN Muscle Pain 5 04/03/24 05/10/24 Rx days #42 tabs New Prescriptions to Start Prescriptions: Allergies Allergy/AdvReac Type Severity Reaction Status Date / Time azithromycin [AZITHROMYCIN] Allergy Mild Verified 03/07/24 09:36 Assessment and Plan *Assessment and plan (1) Lumbar nerve root impingement: Status: Acute Category: Medical Code(s): M54.16 - Radiculopathy, lumbar region (2) Lumbar radiculopathy: Status: Acute Category: Medical Code(s): M54.16 - Radiculopathy, lumbar region (3) Degenerative disc disease, lumbar: Status: Acute Category: Medical Code(s): M51.36 - Other intervertebral disc degeneration, lumbar region Plan I will refill the patient's meloxicam and methocarbamol and provide a 6-month supply of these medications. I did discuss with the patient in future she may benefit from a left transforaminal injection. We will follow-up with this in 2 weeks. Patient agrees with this plan of care. Patient has been instructed to contact the clinic with any concerns before the next appointment. Dr. Buenrostro has reviewed this note and agrees with this plan of care. This note was dictated using voice recognition software and make contain errors or omissions. All injections are used with Lidocaine or Bupivacaine and Depo Medrol.
== END 2024-05-10 23:59 | disposition home or self-care (01) ==
PROVIDERS: PCP Nurse Practitioner; Visit Provider Nurse Practitioner Family
DX: M51.16 Intervertebral disc disorders with radiculopathy, lumbar region (principal)
CPT/HCPCS: 99212; G0463

== ENCOUNTER 2024-05-29 09:23 | Outpatient (POV) | payer OTHER, SELFPAY ==
[2024-05-29 09:56] VITALS: BP 115/73; PULSE 80; RESP 14; O2SAT 98; BMI 28.3
--- NOTE | 2024-05-29 10:59 | A.OFFVIS_ITS ---
[facility] Disclaimer: The information contained in this section may have been updated after the patient was seen, as this information can be updated by other users. Medical History Acute blood loss anemia Encounter for insertion of mirena IUD Mirena IUD inserted 05/23/23 Status post normal vaginal delivery Surgical History No significant past surgical history Family History Other Anemia Diabetes Hyperlipidemia Hypertension Social History Smoking Status: Never smoker second hand exposure: No alcohol intake: never substance use type: denies use current occupational status: other household members: family housing: house current occupational exposures/hazards: No PM Subjective & Objective Subjective Subjective:: Patient is a pleasant 23-year-old female who presents today for worsening pain. She does rated a 4 out of 10 however does state that it will go up at least a 5 or more with increased activity. She does state the pain is all across her low back and hips. She denies any radiating symptoms into her lower extremities. She does state that she is having difficulty performing activities of daily living such as cooking and cleaning due to the pain. Patient has had the chronic low back pain for months and has progressively worsened. Patient has tried and failed oral medications, heat and ice, topicals, at home stretching and exercise for longer than 12 weeks as well as recent physical therapy. She is currently managed with meloxicam and methocarbamol 750 mg 3 times a day from our office. She does not need any refills on this medication she was given a 6- month supply at her last appointment. Her Calvin has been reviewed and is appropriate. Review of Systems: General: No recent weight changes, no fever, no sleep disturbances Respiratory: No cough, no shortness of air, no recurring pulmonary infections Cardiovascular/peripheral vascular: No chest pain, no palpitations, no edema, no shortness of breath Gastrointestinal: No new onset incontinence, normal bowel movements reported Genitourinary: No new onset incontinence Musculoskeletal: Low back pain, bilateral hip pain Psychiatric: [Normal mood/affect] Neurological: [Denies weakness in extremities], [denies balance issues] Pain at rest (0-10 scale): 5 Objective Objective:: Physical Exam: General: Alert and oriented x3, no acute distress, pleasant and cooperative Lungs: Respirations even and unlabored, symmetrical chest expansion Eyes: PERRL Musculoskeletal: Flexion and extension of lumbar [spine] somewhat guarded secondary to pain, [antalgic gait noted] point tenderness along bilateral SIs with positive bilateral Gwendolyn's, Lizet's, Gaenslen's, compression and distraction exam Neurological: Speech clear, no gross sensory deficit Has patient had previous pain injection?: No Conservative treatment options previously tried: Home exercise plan Length of treatment: Longer than 12 weeks Meds Home Medications and Allergies Home Medications ?Medication ?Instructions ?Recorded ?Confirmed ?Type phentermine 37.5 mg tablet 37.5 mg PO DAILY 05/13/23 05/29/24 History levonorgestrel 21 mcg/24 hr (up to 1 device intrauterine ONCE 06/16/23 05/29/24 History 8 years) 52 mg intrauterine device (Mirena) mupirocin 2 % topical ointment 1 applic topical BID #22 grams 11/27/23 05/29/24 Rx sulfamethoxazole 800 1 tab PO Q12H 10 days #20 tabs 11/27/23 05/29/24 Rx mg-trimethoprim 160 mg tablet (Bactrim DS) diclofenac sodium 75 mg 75 mg PO BID #28 tabs 12/15/23 05/29/24 Rx tablet,delayed release meloxicam 15 mg tablet 15 mg PO DAILY #30 tabs 05/10/24 05/29/24 Rx methocarbamol 750 mg tablet 750 mg PO TID PRN Muscle Pain 5 05/10/24 05/29/24 Rx days #90 tabs New Prescriptions to Start Prescriptions: Allergies Allergy/AdvReac Type Severity Reaction Status Date / Time azithromycin (AZITHROMYCIN) Allergy Mild Verified 03/07/24 09:36 Assessment and Plan *Assessment and plan (1) Bilateral sacroiliitis: Status: Acute Category: Medical Code(s): M46.1 - Sacroiliitis, not elsewhere classified Plan Patient is experiencing worsening pain along the low back and bilateral hips. They did have limited range of motion of the lumbar spine along with point tenderness along bilateral SI joints and a positive bilateral Gwendolyn's, Lizet's, Gaenslen's, compression and distraction exam. I did discuss with the patient that I do believe they would benefit from bilateral SI injections. Risk and benefits were discussed with the patient and they would like to proceed forward with this option. Patient has tried and failed conservative therapy including continued at home stretching exercise for longer than 12 weeks. Patient will be scheduled for bilateral SI injections under fluoroscopy. Patient has not had these injections in the past with our office. Patient has also been experiencing this pain for longer than 3 months. Patient has been instructed to contact the clinic with any concerns before the next appointment. Dr. Buenrostro has reviewed this note and agrees with this plan of care. This note was dictated using voice recognition software and make contain errors or omissions. All injections are used with Lidocaine or Bupivacaine and Depo Medrol.
== END 2024-05-29 23:59 | disposition home or self-care (01) ==
LOC: SC.PAIN 09:24
PROVIDERS: PCP Nurse Practitioner; Visit Provider Nurse Practitioner Family
DX: M46.1 Sacroiliitis, not elsewhere classified (principal); Z73.89 Other problems related to life management difficulty
CPT/HCPCS: 99212; G0463

== ENCOUNTER 2024-06-20 13:02 | Day surgery (SDC) | payer OTHER, SELFPAY ==
[2024-06-20 13:22] VITALS: BP 116/79; PULSE 72; RESP 16; TEMP 36.8; O2SAT 99; BMI 29.2
[2024-06-20] MEDS: BUPIVACAINE 0.25% 10ML INJ 25 MG IJ (13:40)
[2024-06-20 13:41] VITALS: BP 135/84; PULSE 77; RESP 18; O2SAT 98
[2024-06-20] MEDS: methylPREDNISolone ACETATE 80MG/ML VIAL 80 MG (13:41)
[2024-06-20] MEDS: LIDOCAINE 1% 5ML PF VIAL 5 ML (13:41)
[2024-06-20 13:42] VITALS: BP 135/84; PULSE 77; RESP 18; O2SAT 98
--- NOTE | 2024-06-20 13:46 | EXP.PAIN.PRO ---
Procedure Date: 06/20/24 Time: 13:45 Anesthesiologist:: Rudy Grove CRNA Complications:: None Pre-procedure Diagnosis:: Bilateral sacroiliitis Post-procedure Diagnosis:: Same Indications for Procedure:: Patient is a pleasant 23-year-old female comes our clinic today for bilateral sacroiliac joint injection of cortisone and local anesthetic. She describes low lumbar back pain off the midline bilaterally. Bilateral posterior hip pain. Difficulty with lumbar flexion and extension. She rates her pain 7/10. Procedure Details:: Procedure: Bilateral sacroiliac joint injections under fluoroscopy Informed consent was obtained and the risks and benefits of the procedure were explained to the patient.~ The patient was taken to the procedure room and noninvasive monitors were placed including a noninvasive blood pressure cuff and pulse oximeter.~ The patient was placed prone on the procedure table. Both hips were cleansed using Betadine as a cleansing solution. C-arm fluoroscopy was used to view the right sacroiliac joint.~ The skin and subcutaneous tissues were anesthetized using lidocaine 1.5% and a 25-gauge needle.~ After this, a 22-gauge spinal needle was inserted under fluoroscopic guidance into the inferior aspect of the right sacroiliac joint.~ Omnipaque dye was injected and good spread was seen throughout the joint.~ After this, approximately 5 mL of bupivacaine, 0.25% and Depo-Medrol, 40 mg was incrementally injected into the right sacroiliac joint. We then moved to the left sacroiliac joint.~ The skin and subcutaneous tissues were anesthetized using lidocaine 1.5% and a 25-gauge needle.~ After this, a 22-gauge spinal needle was inserted under fluoroscopic guidance into the inferior aspect of the left sacroiliac joint.~ Omnipaque dye was injected and good spread was seen throughout the joint. After this, approximately 5 mL of bupivacaine, 0.25% and Depo-Medrol, 40 mg was incrementally injected into the left sacroiliac joint.~ The patient tolerated the procedure well with no complications. The patient was observed in the Pain Clinic and then was discharged home neurologically intact. Plan and Disposition:: Patient was discharged without incident.
[2024-06-20 13:55] VITALS: BP 111/79; PULSE 70; RESP 16; O2SAT 98
== END 2024-06-20 13:55 | disposition home or self-care (01) ==
PROVIDERS: PCP Nurse Practitioner; Visit Provider Nurse Anesthetist, Certified Registered
DX: M46.1 Sacroiliitis, not elsewhere classified (principal)
CPT/HCPCS: 27096; G0260; J1010

== ENCOUNTER 2024-07-13 10:23 | Outpatient (POV) | payer OTHER, SELFPAY ==
--- NOTE | 2024-07-13 10:36 | EXP.PAIN.SOA ---
[facility] Disclaimer: The information contained in this section may have been updated after the patient was seen, as this information can be updated by other users. Medical History Acute blood loss anemia Encounter for insertion of mirena IUD Mirena IUD inserted 05/23/23 Status post normal vaginal delivery Surgical History No significant past surgical history Family History Other Anemia Diabetes Hyperlipidemia Hypertension Social History Smoking Status: Never smoker second hand exposure: No alcohol intake: never substance use type: denies use current occupational status: other Travel in the last 8 weeks: None household members: family housing: house current occupational exposures/hazards: No PM Subjective & Objective Subjective Subjective:: Patient is a pleasant 23-year-old female who presents today for follow-up of bilateral SI injections on 06/20/2024. Today she rates her pain a 6 out of 10. She states that she really did not notice any additional improvement following the SI injections. She states she still has been having chronic low back pain that does seem more aggravating with bending or increased activity like cleaning around the house. Patient denies any new falls or injuries. Patient also states that the pain is not going into her legs. She states for the most part it stays right there at her low back and does feel like the left side is worse than the right.Patient has tried and failed oral medications, heat and ice, topicals, at home stretching and exercise for longer than 12 weeks as well as recent physical therapy. Patient did have worsening symptoms with the physical therapy. She is currently managed with meloxicam and methocarbamol 750 mg 3 times a day from our office. She does not need any refills at this time. Her Calvin has been reviewed and is appropriate. Review of Systems: General: No recent weight changes, no fever, no sleep disturbances Respiratory: No cough, no shortness of air, no recurring pulmonary infections Cardiovascular/peripheral vascular: No chest pain, no palpitations, no edema, no shortness of breath Gastrointestinal: No new onset incontinence, normal bowel movements reported Genitourinary: No new onset incontinence Musculoskeletal: Low back pain Psychiatric: [Normal mood/affect] Neurological: [Denies weakness in extremities], [denies balance issues] Pain at rest (0-10 scale): 6 Objective Objective:: Physical Exam: General: Alert and oriented x3, no acute distress, pleasant and cooperative Lungs: Respirations even and unlabored, symmetrical chest expansion Eyes: PERRL Musculoskeletal: Flexion and extension of lumbar [spine] somewhat guarded secondary to pain, [antalgic gait noted] positive Kemps test Neurological: Speech clear, no gross sensory deficit Has patient had previous pain injection?: Yes Percent improvement in pain since last injection: Minimal Conservative treatment options previously tried: Home exercise plan Length of treatment: Longer than 12 weeks and Physical Therapy Length of treatment: Completed recent physical therapy Meds Home Medications and Allergies Home Medications ?Medication ?Instructions ?Recorded ?Confirmed ?Type phentermine 37.5 mg tablet 37.5 mg PO DAILY 05/13/23 07/13/24 History levonorgestrel (Mirena) 1 device intrauterine ONCE 06/16/23 07/13/24 History mupirocin 2 % topical ointment 1 applic topical BID #22 grams 11/27/23 07/13/24 Rx sulfamethoxazole 800 1 tab PO Q12H 10 days #20 tabs 11/27/23 07/13/24 Rx mg-trimethoprim 160 mg tablet (Bactrim DS) diclofenac sodium 75 mg 75 mg PO BID #28 tabs 12/15/23 07/13/24 Rx tablet,delayed release meloxicam 15 mg tablet 15 mg PO DAILY #30 tabs 05/10/24 07/13/24 Rx methocarbamol 750 mg tablet 750 mg PO TID PRN Muscle Pain 5 05/10/24 07/13/24 Rx days #90 tabs New Prescriptions to Start Prescriptions: Allergies Allergy/AdvReac Type Severity Reaction Status Date / Time azithromycin (AZITHROMYCIN) Allergy Mild Verified 03/07/24 09:36 Assessment and Plan *Assessment and plan (1) Bilateral sacroiliitis: Status: Acute Category: Medical Code(s): M46.1 - Sacroiliitis, not elsewhere classified (2) Lumbar radiculopathy: Status: Acute Category: Medical Code(s): M54.16 - Radiculopathy, lumbar region (3) Degenerative disc disease, lumbar: Status: Acute Category: Medical Code(s): M51.369 - Other intervertebral disc degeneration, lumbar region without mention of lumbar back pain or lower extremity pain Plan I did review over with the patient due to her worsening pain that she may benefit from updated imaging. We did try a lumbar epidural in the past that did provide 50 to 60% improvement however only lasted for about 2 days. Patient has tried SI injections with no additional improvement. Patient did have positive Kemps test during today's exam. I did discuss with her in future she may benefit from facet injections however I would like to review over updated imaging to confirm there are no other changes or alterations in the levels. Patient agrees with this plan of care. I will send in a 1 month supply of duloxetine 20 mg daily. I will order x-ray imaging and MRI without contrast of her lumbar spine and follow-up with her in 1 month. Patient's last labs in our system from October 2022 do show history of anemia. Patient does state that she has not had any updated labs and that she typically just sees her primary care when she is under the weather. Patient denies any heavy menstruation since having her IUD placed. We will follow-up with this at upcoming visits as well as ordering possible updated labs in order to rule out any other potential causes for the chronic low back pain. Patient has been instructed to contact the clinic with any concerns before the next appointment. Dr. Buenrostro has reviewed this note and agrees with this plan of care. This note was dictated using voice recognition software and make contain errors or omissions. All injections are used with Lidocaine, Bupivacaine and Depo Medrol. Occasionally urine drug screen is needed to verify patient's compliance with our office pain contract. This is ordered based off specific treatments related to chronic pain with the potential to abuse certain medications.
[2024-07-13 10:53] VITALS: BP 107/68; PULSE 72; RESP 16; O2SAT 98; BMI 30.1
== END 2024-07-13 23:59 | disposition home or self-care (01) ==
PROVIDERS: Visit Provider Nurse Practitioner Family
DX: M46.1 Sacroiliitis, not elsewhere classified (principal); M51.16 Intervertebral disc disorders with radiculopathy, lumbar region; Z73.89 Other problems related to life management difficulty
CPT/HCPCS: 99212; G0463

== ENCOUNTER 2024-07-28 23:35 | Emergency (ER) | payer OTHER, SELFPAY ==
[2024-07-28 23:47] VITALS: BP 147/99; PULSE 74; RESP 18; TEMP 36.7; O2SAT 97; BMI 30.4
--- NOTE | 2024-07-28 23:53 | CT_ITS ---
PROCEDURE INFORMATION: Exam: CT Head Without Contrast Exam date and time: 07/29/2024 12:22 AM Age: 23 years old Clinical indication: Pain; Headache; Additional info: Headache 1w TECHNIQUE: Imaging protocol: Computed tomography of the head without contrast. Radiation optimization: All CT scans at this facility use at least one of these dose optimization techniques: automated exposure control; mA and/or kV adjustment per patient size (includes targeted exams where dose is matched to clinical indication); or iterative reconstruction. COMPARISON: No relevant prior studies available. FINDINGS: Brain: There is no acute hemorrhage or obvious acute infarct. Cortical volume loss noted. Scattered hypodensities noted in the bilateral periventricular and deep white matter. Atherosclerosis noted in the bilateral cavernous carotid arteries. Cerebral ventricles: Mildly prominent ventricles, which may represent central volume loss. Paranasal sinuses: Mucous retention cysts noted in the right maxillary sinus. No fluid levels. Mastoid air cells: Visualized mastoid air cells are well aerated. Bones: Unremarkable. No acute fracture. Soft tissues: Unremarkable. IMPRESSION: 1. No acute intracranial disease or hemorrhage. 2. No obvious acute infarct. Please note if the patient's symptoms do not improve, or worsen, consider MRI with diffusion imaging. 3. Chronic deep white matter ischemic and senescent changes noted. Please see above. 4. Chronic paranasal sinus disease
[2024-07-29 00:19] LABS: Urine Pregnancy, HCG Qual. Negative (Negative)
[2024-07-29] MEDS: diphenhydrAMINE 25MG CAPSULE 50 MG PO (00:31)
[2024-07-29] MEDS: KETOROLAC 30MG/ML VIAL 30 MG IM (00:31)
[2024-07-29] MEDS: METOCLOPRAMIDE 10MG TABLET 10 MG PO (00:31)
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
[2024-07-29 01:11] VITALS: BP 131/92; PULSE 77; RESP 18; TEMP 36.9; O2SAT 100
== END 2024-07-29 01:16 | disposition home or self-care (01) ==
PROVIDERS: Emergency Provider Emergency Medicine
DX: R51.9 Headache, unspecified (principal); R42 Dizziness and giddiness; R11.0 Nausea; R25.9 Unspecified abnormal involuntary movements
CPT/HCPCS: 70450; 81025; 96372; 99284; J1885

== ENCOUNTER 2024-08-02 08:49 | Outpatient (CLI) | payer OTHER, SELFPAY ==
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
== END 2024-08-02 23:59 | disposition home or self-care (01) ==
LOC: RAD 08:50
PROVIDERS: Visit Provider Anesthesiology
DX: M51.369 Other intervertebral disc degeneration, lumbar region without mention of lumbar back pain or lower extremity pain (principal); M54.16 Radiculopathy, lumbar region; M46.1 Sacroiliitis, not elsewhere classified
CPT/HCPCS: 72148

== ENCOUNTER 2024-08-03 22:27 | Emergency (ER) | payer OTHER, SELFPAY ==
[2024-08-03 22:29] VITALS: BP 145/91; PULSE 85; RESP 18; TEMP 36.4; O2SAT 97; BMI 30.9
--- NOTE | 2024-08-03 22:57 | CT_ITS ---
PROCEDURE INFORMATION: Exam: CTA Head With Contrast, Venography Exam date and time: 08/04/2024 12:56 AM Age: 23 years old Clinical indication: Pain; Headache; Additional info: Severe intractable headache 2 wks TECHNIQUE: Imaging protocol: Computed tomography angiography of the head with contrast. Exam focused on the veins. 3D rendering (Not supervised by radiologist): MIP and/or 3D reconstructed images were created by the technologist. Radiation optimization: All CT scans at this facility use at least one of these dose optimization techniques: automated exposure control; mA and/or kV adjustment per patient size (includes targeted exams where dose is matched to clinical indication); or iterative reconstruction. Contrast material: ISOVUE; Contrast volume: 100 ml; Contrast route: INTRAVENOUS (IV); COMPARISON: CT ANGIO HEAD 08/04/2024 12:53 AM FINDINGS: Superior sagittal sinus: Patent. Straight sinus: Patent. Transverse sinuses: Patent. Sigmoid sinuses: Patent. Internal jugular veins: Limited visualized internal jugular veins are patent. Brain: No definite mass, mass effect, or midline shift. Cerebral ventricles: No ventriculomegaly. Soft tissues: Unremarkable. IMPRESSION: No large vessel occlusion. No acute intracranial abnormalities.
--- NOTE | 2024-08-03 22:57 | CT_ITS ---
PROCEDURE INFORMATION: Exam: CTA Head With Contrast, Arteriography Exam date and time: 08/04/2024 12:53 AM Age: 23 years old Clinical indication: Pain; Headache; Additional info: Severe intractable headache 2 wks TECHNIQUE: Imaging protocol: Computed tomographic angiography of the head with contrast. Exam focused on the arteries. 3D rendering (Not supervised by radiologist): MIP and/or 3D reconstructed images were created by the technologist. Radiation optimization: All CT scans at this facility use at least one of these dose optimization techniques: automated exposure control; mA and/or kV adjustment per patient size (includes targeted exams where dose is matched to clinical indication); or iterative reconstruction. Contrast material: ISOVUE; Contrast volume: 80 ml; Contrast route: INTRAVENOUS (IV); COMPARISON: CT ANGIO HEAD 08/04/2024 12:53 AM FINDINGS: ANTERIOR CIRCULATION: Right internal carotid artery: Intracranial segment is patent with no significant stenosis. No aneurysm. Right middle cerebral artery: No occlusion or significant stenosis. No aneurysm. Right anterior cerebral artery: No occlusion or significant stenosis. No aneurysm. Left internal carotid artery: Intracranial segment is patent with no significant stenosis. No aneurysm. Left middle cerebral artery: No occlusion or significant stenosis. No aneurysm. Left anterior cerebral artery: No occlusion or significant stenosis. No aneurysm. POSTERIOR CIRCULATION: Right vertebral artery: No occlusion or significant stenosis. No aneurysm. Left vertebral artery: No occlusion or significant stenosis. No aneurysm. Basilar artery: No occlusion or significant stenosis. No aneurysm. Right posterior cerebral artery: No occlusion or significant stenosis. No aneurysm. Left posterior cerebral artery: No occlusion or significant stenosis. No aneurysm. Brain: No definite mass, mass effect, or midline shift. Cerebral ventricles: No ventriculomegaly. Bones/joints: No acute fracture or focal bone lesions. Soft tissues: No masses or swelling. IMPRESSION: No large vessel occlusion. No acute intracranial abnormalities.
--- NOTE | 2024-08-03 22:57 | CT_ITS ---
PROCEDURE INFORMATION: Exam: CT Head Without Contrast Exam date and time: 08/04/2024 12:51 AM Age: 23 years old Clinical indication: Pain; Headache; Additional info: Severe intractable headache 2 wks TECHNIQUE: Imaging protocol: Computed tomography of the head without contrast. Total images: 567 Radiation optimization: All CT scans at this facility use at least one of these dose optimization techniques: automated exposure control; mA and/or kV adjustment per patient size (includes targeted exams where dose is matched to clinical indication); or iterative reconstruction. COMPARISON: CT HEAD/BRAIN WO CON 07/29/2024 12:22 AM FINDINGS: Brain: Normal. No hemorrhage. Unremarkable white matter. No mass effect. The hernadez-white interface is maintained. Cerebral ventricles: No ventriculomegaly. Paranasal sinuses: Polyp or retention cyst base of the right maxillary sinus. Included sinuses are otherwise clear. Mastoid air cells: Visualized mastoid air cells are well aerated. Bones: Unremarkable. No acute fracture. Soft tissues: Unremarkable. IMPRESSION: No acute intracranial process.
[2024-08-03] MEDS: KETOROLAC 30MG/ML VIAL 15 MG IV (23:07)
[2024-08-03] MEDS: LACTATED RINGERS 1000ML 1,000 ML 999 ML IV (23:07)
[2024-08-03] MEDS: droPERidol 5MG/2ML VIAL 2.5 MG IV (23:07)
[2024-08-03] MEDS: MAGNESIUM SULFATE IN WATER 2 GM/50 ML PIGGYBACK IV (23:08)
[2024-08-03] MEDS: ACETAMINOPHEN 500MG TAB 1000 MG PO (23:08)
--- NOTE | 2024-08-03 23:10 | ECG_ITS ---
APPROVED REPORT Exam: Resting ECG HR:60 bpm ECG Measurements Heart Rate 60 AXES DC 147 P 48 QRSd 101 QRS 71 QT 390 T 40 QTc 390 Conclusion SINUS RHYTHM NORMAL ECG UNCONFIRMED REPORT Electronically signed by : GARRY SOSA, 08/05/2024 00:40:21
--- NOTE | 2024-08-03 23:15 | ED_ITS ---
Discharge Plan Disposition Patient Disposition: Home, Self-Care Prescriptions Prescriptions: No Action phentermine 37.5 mg tablet 37.5 mg PO DAILY Mirena 21 mcg/24 hours (8 yrs) 52 mg intrauterine device 1 device intrauterine ONCE diclofenac sodium 75 mg tablet,delayed release (DR/EC) 75 mg PO BID Qty: 28 0RF mupirocin 2 % ointment 1 applic topical BID Qty: 22 0RF sulfamethoxazole-trimethoprim [Bactrim DS] 800-160 mg tablet 1 tab PO Q12H 10 Days Qty: 20 0RF meloxicam 15 mg tablet 15 mg PO DAILY Qty: 30 5RF methocarbamol 750 mg tablet 750 mg PO TID PRN (Reason: Muscle Pain) 5 Days Qty: 90 5RF duloxetine 20 mg capsule,delayed release(DR/EC) 20 mg PO DAILY Qty: 30 0RF Referrals Follow up/Referrals: Arielle Stark APRN [Primary Care Provider] - See instructions Activity Restrictions/Add. Instructions Additional Instructions/Restrictions: Recommend continued outpatient workup for headache including Opthomology/neurology/PCP. Please return to the emergency department if you develop any new or worsening symptoms or become concerned for your health. Clinical Impressions Clinical Impression: Headache Qualifiers: Headache type: new daily persistent Qualified Code(s): G44.52 - New daily persistent headache (NDPH) Print Language Print Language: Ukrainian Discharge ED Provider: Mick Alan General Adult HPI <Radha Neves DO - Last Filed: 08/03/24 23:20> General Chief complaint: Headache Stated complaint: Migraine with vomiting Time Seen by Provider: 08/03/24 22:47 Mode of Arrival: Ambulatory Source of Information: Patient Limitations: No Limitations Description of Symptoms (Recalled from ER Triage Doc. by RN): pt to ED with c/o migraine all day. pt reports consistant migrainees for the past 2 weeks. pt reports dizziness an blurry vision as well. pt has takern tylenol and migraine meds History of Present Illness HPI narrative: This patient is a 23-year-old female who denies significant past medical history presenting to the emergency department for evaluation with concern for severe intractable headache for 2 weeks. Patient states its progressively worsened. She denies any prior history of headaches or migraines in the past. She states that she was evaluated here 07/24/2024 and had some improvement after medications, however her symptoms have progressively worsened since then and now she is requesting just to be put to sleep because her head is hurting so bad. She has photophobia, phonophobia, and states that her vision feels like is intermittent blurry. She also states that her neck muscles feel tired and sore. She has had no fevers, cough, congestion, or infectious symptoms. Related Data Home Medications ?Medication ?Instructions ?Recorded ?Confirmed phentermine 37.5 mg tablet 37.5 mg PO DAILY 05/13/23 07/13/24 levonorgestrel (Mirena) 1 device intrauterine ONCE 06/16/23 07/13/24 Previous Rx's ?Medication ?Instructions ?Recorded mupirocin 2 % topical ointment 1 applic topical BID #22 grams 11/27/23 sulfamethoxazole 800 1 tab PO Q12H 10 days #20 tabs 11/27/23 mg-trimethoprim 160 mg tablet (Bactrim DS) diclofenac sodium 75 mg 75 mg PO BID #28 tabs 12/15/23 tablet,delayed release meloxicam 15 mg tablet 15 mg PO DAILY #30 tabs 05/10/24 methocarbamol 750 mg tablet 750 mg PO TID PRN Muscle Pain 5 05/10/24 days #90 tabs duloxetine 20 mg capsule,delayed 20 mg PO DAILY #30 caps 07/13/24 release Allergies Allergy/AdvReac Type Severity Reaction Status Date / Time azithromycin (AZITHROMYCIN) Allergy Mild Verified 03/07/24 09:36 [facility] <Radha Neves DO - Last Filed: 08/03/24 23:20> [facility] Disclaimer: The information contained in this section may have been updated after the patient was seen, as this information can be updated by other users. Medical History Encounter for insertion of mirena IUD Status post normal vaginal delivery Acute blood loss anemia Surgical History No significant past surgical history Family History Other Anemia Diabetes Hyperlipidemia Hypertension Social History Smoking Status: Unknown if ever smoked second hand exposure: No alcohol intake: never substance use type: denies use current occupational status: other Travel in the last 8 weeks: None household members: family housing: house current occupational exposures/hazards: No Have you lived/traveled outside US in past 30 days?: No Contact w/someone who lives/traveled outside US past 30 days?: No Exposure to someone with infectious disease in past 14 days?: No Do you have a fever (greater than 100.4 F or 38 C)?: No Have you tested positive for COVID-19: No Exposed to someone with COVID-19 in past 14 days?: No Do you have a sore throat?: No Do you have a cough?: No Do you have any weakness?: No Do you have any diarrhea?: No Are you experiencing any unusual bleeding?: No Do you have any muscle aches/pain?: No Do you have any abdominal pain?: No Are you experiencing loss of taste or smell?: No Other Medical History Have you received the Flu Vaccine for this season: No Have you received the Pneumonia Vaccine: No <Radha Neves DO - Last Filed: 08/03/24 23:20> ROS Obtained: Yes All systems reviewed & no additional complaints except as documented Physical Exam <Radha Neves DO - Last Filed: 08/03/24 23:20> General General appearance: alert and in no apparent distress Head Head exam: atraumatic and normocephalic Eye Eye exam: Present normal appearance, PERRL and EOMI ENT ENT exam: Present normal exam, normal oropharynx, mucous membranes moist and normal external ear exam Neck Neck exam: Present normal inspection, full ROM and trachea midline; Absent tenderness Chest Chest inspection: Present normal inspection and symmetric chest wall rise; Absent tenderness Respiratory Respiratory exam: Present normal lung sounds bilaterally; Absent respiratory distress, wheezes, stridor or accessory muscle use Cardiovascular Cardiovascular exam: Present regular rate and normal rhythm Abdominal Exam Abdominal exam: Present soft; Absent distention, tenderness or guarding Extremities Exam Extremities exam: Present normal inspection, full ROM and normal capillary refill; Absent tenderness or edema Back Exam Back exam: Present normal inspection and full ROM; Absent tenderness Neurological Exam Neurological exam: Present alert, oriented X3, CN II-XII intact and normal gait; Absent motor sensory deficit Psychiatric Psychiatric exam: Present normal affect and normal mood Skin Skin exam: Present warm and dry Medical Decision Making <Radha Neves, DO - Last Filed: 08/03/24 23:20> Medical Records Medical records reviewed: Yes I reviewed the patient's medical records. Screening: Per USPSTF and CDC recommendations, given the prevalence of disease in our region, it is our hospital?s policy to screen for HIV and viral Hepatitis for all patients aged 18 and over and those with ongoing risk factors. Calvin Inquiry Pt receiving controlled substance: No Vital Signs: 08/03/24 22:29 08/04/24 01:37 Temperature 97.6 F 97.8 F Temperature Source Oral Oral Pulse Rate 98 H Pulse Rate [Left Radial] 85 Respiratory Rate 18 16 Blood Pressure 110/81 Blood Pressure [Right Arm] 145/91 H Blood Pressure Mean [Right Arm] 109 Blood Pressure Source [Right Arm] Automatic Cuff Blood Pressure Position [Right Arm] Sitting 02 Sat by Pulse Oximetry 97 Oxygen Delivery Method Room Air Room Air Lab Data Lab results reviewed: Yes I reviewed the patient's lab results. Lab Results 08/03/24 23:33: WBC 8.2, RBC 4.41, Hgb 13.7, Hct 40.5, MCV 91.8, MCH 31.1, MCHC 33.8, RDW 13.0, Plt Count 254, MPV 10.3, Neut % (Auto) 61.0, Lymph % (Auto) 30.5, [place] % (Auto) 6.3, Eos % (Auto) 1.5, Baso % (Auto) 0.5, Neut # (Auto) 5.0, Lymph # (Auto) 2.5, [place] # (Auto) 0.5, Eos # (Auto) 0.1, Baso # (Auto) 0.0, Sodium 142, Potassium 3.9, Chloride 106, Carbon Dioxide 27, Anion Gap 12.9, BUN 14, Creatinine 0.60, Estimated Creat Clear 184, Estimated GFR 125, Est GFR ( Amer) 151, Glucose 82, Calcium 9.7, Magnesium 2.3, Total Bilirubin 0.3, AST 24, ALT 18, Alkaline Phosphatase 77, Total Protein 7.4, Albumin 4.8, Globulin 2.6, Albumin/Globulin Ratio 1.8, TSH 1.87, Thyroxine (T4) 10.9, Serum HCG, Qual Negative 08/03/24 23:33 08/03/24 23:33 Orders (Tests/Meds): ED MEDICATIONS Discontinued Medications Generic Name Dose Route Start Last Admin Trade Name Nielsq PRN Reason Stop Dose Admin Acetaminophen 1,000 mg 08/03/24 22:54 08/03/24 23:08 Acetaminophen 500mg Tab PO 08/03/24 22:55 1,000 mg ONCE ONE Administration Droperidol 2.5 mg 08/03/24 22:54 08/03/24 23:07 Droperidol 5mg/2ml Vial IV 08/03/24 22:55 2.5 mg ONCE ONE Administration Lactated Ringer's 1,000 mls @ 999 mls/hr 08/03/24 22:54 08/03/24 23:07 Lactated Ringer's 1000 Ml Bag IV 08/03/24 23:54 999 mls/hr .Q1H1M ONE Administration Magnesium Sulfate 2 gm in 50 mls @ 50 mls/hr 08/03/24 22:54 08/03/24 23:08 Magnesium Sulfate 2gm/50ml Premix IV 08/03/24 23:53 50 mls/hr ONCE ONE Administration Iopamidol 180 ml 08/04/24 01:02 08/04/24 01:03 Iopamidol-370 (76%);100ml Bottle IV 08/04/24 01:03 180 ml ONCE ONE Administration Ketorolac Tromethamine 15 mg 08/03/24 22:54 08/03/24 23:07 Ketorolac 30mg/Ml Vial IV 08/03/24 22:55 15 mg ONCE ONE Administration Sodium Chloride 100 ml 08/04/24 01:02 08/04/24 01:03 0.9 % Sodium Chloride 50 Ml Vial IV 08/04/24 01:03 100 ml ONCE ONE Administration Sodium Chloride 10 ml 08/04/24 01:02 08/04/24 01:03 Sodium Chloride 0.9% 10ml Syr (Rad Only) IV 09/03/24 01:01 10 ml NEEDED PRN Administration Maintain IV Site ORDERS Category Date Time Status CT Venogram head Stat Cat Scan 08/03/24 22:[address] angio head Stat Cat Scan 08/03/24 22:[address] head/brain wo con Stat Cat Scan 08/03/24 22:57 Completed Complete Blood Count Auto Diff Stat Lab 08/03/24 23:33 Completed Comprehensive Metabolic Panel Stat Lab 08/03/24 23:33 Completed HIV Combo Stat Lab 08/03/24 23:33 Received Hepatitis C Ab Qual. W/ RFX Stat Lab 08/03/24 23:33 Received MAG [Magnesium] Stat Lab 08/03/24 23:33 Completed Serum [HCG Qualitative, Serum] Stat Lab 08/03/24 23:33 Completed T4 (Thyroxine) Stat Lab 08/03/24 23:33 Completed TSH [Thyroid Stimulating Hormone] Stat Lab 08/03/24 23:33 Completed ECG Data Tracing #1: I reviewed this ECG and interpreted as documented below: Normal sinus rhythm with a ventricular rate of [address] changes concerning for ischemia. Normal axis and intervals. ECG initial impression date: 08/03/24 ECG initial impression time: 23:12 Medical Decision Narrative: In summary, this patient is a 23-year-old female presenting to the Emergency Department for evaluation of progressively worsening headache over the last 2 weeks. Differential diagnoses considered include but are not limited to migraine, tension headache, rebound headache, cavernous sinus thrombosis, intracranial mass. Ruling out the most morbid conditions drove assessment. I reviewed patient's past medical records and noted evaluation here 07/24/2024 for similar symptoms as detailed in HPI. She had IM and oral migraine cocktail at that time with improvement in her symptoms, and she had a negative CT head without contrast. She was discharged home. On exam, the patient is sitting upright in no acute distress. She is neurologically intact without focal deficit, she has no meningismus. She is afebrile and nontoxic-appearing with reassuring vital signs, though she does appear uncomfortable workup included CBC, CMP, magnesium, TSH, T4, test, CT head without contrast, CT angiogram of the head, CT venogram of the head. She was given migraine cocktail of IV droperidol, Toradol, magnesium, fluids. Patient care was signed out to the oncoming provider, Dr. Alan, pending workup and disposition. <Mick Alan MD - Last Filed: 08/04/24 01:49> Vital Signs: 08/03/24 22:29 08/04/24 01:37 Temperature 97.6 F 97.8 F Temperature Source Oral Oral Pulse Rate 98 H Pulse Rate [Left Radial] 85 Respiratory Rate 18 16 Blood Pressure 110/81 Blood Pressure [Right Arm] 145/91 H Blood Pressure Mean [Right Arm] 109 Blood Pressure Source [Right Arm] Automatic Cuff Blood Pressure Position [Right Arm] Sitting 02 Sat by Pulse Oximetry 97 Oxygen Delivery Method Room Air Room Air Lab Data Lab Results 08/03/24 23:33: WBC 8.2, RBC 4.41, Hgb 13.7, Hct 40.5, MCV 91.8, MCH 31.1, MCHC 33.8, RDW 13.0, Plt Count 254, MPV 10.3, Neut % (Auto) 61.0, Lymph % (Auto) 30.5, [place] % (Auto) 6.3, Eos % (Auto) 1.5, Baso % (Auto) 0.5, Neut # (Auto) 5.0, Lymph # (Auto) 2.5, [place] # (Auto) 0.5, Eos # (Auto) 0.1, Baso # (Auto) 0.0, Sodium 142, Potassium 3.9, Chloride 106, Carbon Dioxide 27, Anion Gap 12.9, BUN 14, Creatinine 0.60, Estimated Creat Clear 184, Estimated GFR 125, Est GFR ( Amer) 151, Glucose 82, Calcium 9.7, Magnesium 2.3, Total Bilirubin 0.3, AST 24, ALT 18, Alkaline Phosphatase 77, Total Protein 7.4, Albumin 4.8, Globulin 2.6, Albumin/Globulin Ratio 1.8, TSH 1.87, Thyroxine (T4) 10.9, Serum HCG, Qual Negative Orders (Tests/Meds): ED MEDICATIONS Discontinued Medications Generic Name Dose Route Start Last Admin Trade Name Beverly PRN Reason Stop Dose Admin Acetaminophen 1,000 mg 08/03/24 22:54 08/03/24 23:08 Acetaminophen 500mg Tab PO 08/03/24 22:55 1,000 mg ONCE ONE Administration Droperidol 2.5 mg 08/03/24 22:54 08/03/24 23:07 Droperidol 5mg/2ml Vial IV 08/03/24 22:55 2.5 mg ONCE ONE Administration Lactated Ringer's 1,000 mls @ 999 mls/hr 08/03/24 22:54 08/03/24 23:07 Lactated Ringer's 1000 Ml Bag IV 08/03/24 23:54 999 mls/hr .Q1H1M ONE Administration Magnesium Sulfate 2 gm in 50 mls @ 50 mls/hr 08/03/24 22:54 08/03/24 23:08 Magnesium Sulfate 2gm/50ml Premix IV 08/03/24 23:53 50 mls/hr ONCE ONE Administration Iopamidol 180 ml 08/04/24 01:02 08/04/24 01:03 Iopamidol-370 (76%);100ml Bottle IV 08/04/24 01:03 180 ml ONCE ONE Administration Ketorolac Tromethamine 15 mg 08/03/24 22:54 08/03/24 23:07 Ketorolac 30mg/Ml Vial IV 08/03/24 22:55 15 mg ONCE ONE Administration Sodium Chloride 100 ml 08/04/24 01:02 08/04/24 01:03 0.9 % Sodium Chloride 50 Ml Vial IV 08/04/24 01:03 100 ml ONCE ONE Administration Sodium Chloride 10 ml 08/04/24 01:02 08/04/24 01:03 Sodium Chloride 0.9% 10ml Syr (Rad Only) IV 09/03/24 01:01 10 ml NEEDED PRN Administration Maintain IV Site ORDERS Category Date Time Status CT Venogram head Stat Cat Scan 08/03/24 22:[address] angio head Stat Cat Scan 08/03/24 22:[address] head/brain wo con Stat Cat Scan 08/03/24 22:57 Completed Complete Blood Count Auto Diff Stat Lab 08/03/24 23:33 Completed Comprehensive Metabolic Panel Stat Lab 08/03/24 23:33 Completed HIV Combo Stat Lab 08/03/24 23:33 Received Hepatitis C Ab Qual. W/ RFX Stat Lab 08/03/24 23:33 Received MAG [Magnesium] Stat Lab 08/03/24 23:33 Completed Serum [HCG Qualitative, Serum] Stat Lab 08/03/24 23:33 Completed T4 (Thyroxine) Stat Lab 08/03/24 23:33 Completed TSH [Thyroid Stimulating Hormone] Stat Lab 08/03/24 23:33 Completed Medical Decision Narrative: In summary, this patient is a 23-year-old female presenting to the Emergency Department for evaluation of progressively worsening headache over the last 2 weeks. Differential diagnoses considered include but are not limited to migraine, tension headache, rebound headache, cavernous sinus thrombosis, intracranial mass. Ruling out the most morbid conditions drove assessment. I reviewed patient's past medical records and noted evaluation here 07/24/2024 for similar symptoms as detailed in HPI. She had IM and oral migraine cocktail at that time with improvement in her symptoms, and she had a negative CT head without contrast. She was discharged home. On exam, the patient is sitting upright in no acute distress. She is neurologically intact without focal deficit, she has no meningismus. She is afebrile and nontoxic-appearing with reassuring vital signs, though she does appear uncomfortable workup included CBC, CMP, magnesium, TSH, T4, test, CT head without contrast, CT angiogram of the head, CT venogram of the head. She was given migraine cocktail of IV droperidol, Toradol, magnesium, fluids. Patient care was signed out to the oncoming provider, Dr. Alan, pending workup and disposition. Dayanna RAE: I assumed care of the patient at the time of handoff from the prior provider. On reassessment patient ports marked symptomatic treatment of headache and request to be discharged. CT imaging interpreted by me shows negative CT Noncon, no evidence of aneurysm on CTA, no evidence of thrombosis on CTV. Interactive discussion was had with patient and family regarding presentation. Recommend she continue follow-up with PCP for further workup including ophthalmology/neurology/MRI evaluation. Return precautions given. Patient discharged in stable condition. Critical Care <Radha Neves, - Last Filed: 08/03/24 23:20> Critical Care Time Critical Care Time: No
[2024-08-03 23:42] LABS: Basophils % 0.5 % (0.1-2.0); Eosinophils # 0.1 K/mm3 (0.0-0.4); Eosinophils % 1.5 % (0.1-12.0); Hematocrit 40.5 % (37.0-47.0); Hemoglobin 13.7 g/dL (12.2-16.2); Lymphocytes # 2.5 K/mm3 (0.7-4.5); Lymphocytes % 30.5 % (10-50); Mean Corpuscular HGB Conc 33.8 g/dL (31.8-35.4); Mean Corpuscular Hemoglobin 31.1 pg (27.0-31.2); Mean Corpuscular Volume 91.8 fl (81-99); Mean Platelet Volume 10.3 fl (7.4-10.4); Monocytes # 0.5 K/mm3 (0.1-1.0); Monocytes % 6.3 % (1.7-9.3); Platelet Count 254 K/mm3 (142-424); Red Blood Count 4.41 M/mm3 (4.20-5.40); White Blood Count 8.2 K/mm3 (4.8-10.8)
[2024-08-03 23:54] LABS: Alanine Aminotransferase 18 U/L (12-78); Albumin Level 4.8 g/dl (3.5-5.0); Albumin/Globulin Ratio 1.8 (1.1-1.8); Alkaline Phosphatase 77 U/L (38-126); Anion Gap 12.9 mEq/L (5-15); Aspartate Amino Transferase 24 U/L (14-36); Bilirubin,Total 0.3 mg/dl (0.2-1.3); Blood Urea Nitrogen 14 mg/dl (7-17); Calcium 9.7 mg/dl (8.4-10.2); Carbon Dioxide 27 mmol/L (22.0-30.0); Chloride 106 mmol/L (98-107); Creatinine Clearance Estimated 184 mL/min (50-200); Estimated Glomerular Filt Rate 125 ml/min (>60); GFR (African American) 151 ML/MIN (>60); Globulin 2.6 g/dL (1.3-3.2); Glucose 82 mg/dl (74-100); Magnesium 2.3 mg/dl (1.6-2.3); Potassium 3.9 mmoL/L (3.5-5.1); Sodium 142 mmol/L (136-145); Total Protein,Serum 7.4 g/dl (6.3-8.2)
[2024-08-04 00:32] LABS: Thyroid Stimulating Hormone 1.87 uIU/mL (0.465-4.68)
[2024-08-04 00:37] LABS: HCG Qualitative, Serum Negative (Negative)
[2024-08-04 00:42] LABS: T4 (Thyroxine) 10.9 ug/dl (5.53-11.0)
[2024-08-04] MEDS: IOPAMIDOL-370 (76%);100ML BOTTLE 180 ML IV (01:03)
[2024-08-04] MEDS: SODIUM CHLORIDE 0.9% 10ML SYR (RAD ONLY) 10 ML IV (01:03)
[2024-08-04] MEDS: 0.9 % SODIUM CHLORIDE 50 ML VIAL 100 ML IV (01:03)
[2024-08-04 01:37] VITALS: BP 110/81; PULSE 98; RESP 16; TEMP 36.6; O2SAT 100
[2024-08-04 10:57] LABS: Hepatitis C Ab Qual. W/ RFX NEGATIVE (Negative)
[2024-08-04 13:16] LABS: HIV Combo NEGATIVE (Negative)
== END 2024-08-04 01:40 | disposition home or self-care (01) ==
PROVIDERS: Emergency Medicine; Emergency Provider Emergency Medicine; PCP Nurse Practitioner
DX: G44.52 New daily persistent headache (NDPH) (principal); M54.2 Cervicalgia; H53.143 Visual discomfort, bilateral; H53.8 Other visual disturbances
CPT/HCPCS: 70450; 70496; 80053; 83735; 84436; 84443; 84703; 85025; 86803; 87389; 93005; 96361; 96365; 96374; 96375; 99285; J1790; J1885; J3475; J7120; Q9967

== ENCOUNTER 2024-08-11 14:03 | Outpatient (POV) | payer OTHER, SELFPAY ==
--- NOTE | 2024-08-11 14:06 | A.OFFVIS_ITS ---
[facility] Disclaimer: The information contained in this section may have been updated after the patient was seen, as this information can be updated by other users. Medical History Encounter for insertion of mirena IUD Status post normal vaginal delivery Acute blood loss anemia Surgical History No significant past surgical history Family History Other Anemia Diabetes Hyperlipidemia Hypertension Social History Smoking Status: Unknown if ever smoked second hand exposure: No alcohol intake: never substance use type: denies use current occupational status: other Travel in the last 8 weeks: None household members: family housing: house current occupational exposures/hazards: No Have you lived/traveled outside [place] in past 30 days?: No Contact w/someone who lives/traveled outside US past 30 days?: No Exposure to someone with infectious disease in past 14 days?: No Do you have a fever (greater than 100.4 F or 38 C)?: No Have you tested positive for COVID-19: No Exposed to someone with COVID-19 in past 14 days?: No Do you have a sore throat?: No Do you have a cough?: No Do you have any weakness?: No Do you have any diarrhea?: No Are you experiencing any unusual bleeding?: No Do you have any muscle aches/pain?: No Do you have any abdominal pain?: No Are you experiencing loss of taste or smell?: No PM Subjective & Objective Subjective Subjective:: Patient is a pleasant 23-year-old female who presents today for follow-up of MRI of lumbar spine. Today she rates her pain a 5 out of 10. She denies any new trauma or injury. She is stating that she still has the chronic back pain however it has not been as severe. Patient was also at her last appointment send in a prescription of duloxetine 20 mg daily. Patient is also managed with meloxicam 15 mg daily and methocarbamol 750 mg 3 times a day. She denies any side effects from these medications her Calvin has been reviewed and is appropriate. Review of Systems: General: No recent weight changes, no fever, no sleep disturbances Respiratory: No cough, no shortness of air, no recurring pulmonary infections Cardiovascular/peripheral vascular: No chest pain, no palpitations, no edema, no shortness of breath Gastrointestinal: No new onset incontinence, normal bowel movements reported Genitourinary: No new onset incontinence Musculoskeletal: Low back pain Psychiatric: [Normal mood/affect] Neurological: [Denies weakness in extremities], [denies balance issues] Pain at rest (0-10 scale): 5 Objective Objective:: Physical Exam: General: Alert and oriented x3, no acute distress, pleasant and cooperative Lungs: Respirations even and unlabored, symmetrical chest expansion Eyes: PERRL Musculoskeletal: Flexion and extension of lumbar [spine] somewhat guarded secondary to pain Neurological: Speech clear, no gross sensory deficit L5-S1: Moderate diffuse disc bulge with mild bilateral neuroforaminal narrowing, similar to previous. Has patient had previous pain injection?: No Conservative treatment options previously tried: Home exercise plan Length of t reatment: Longer than 12-week Meds Home Medications and Allergies Home Medications ?Medication ?Instructions ?Recorded ?Confirmed ?Type levonorgestrel (Mirena) 1 device intrauterine ONCE 06/16/23 08/11/24 History meloxicam 15 mg tablet 15 mg PO DAILY #30 tabs 05/10/24 08/11/24 Rx methocarbamol 750 mg tablet 750 mg PO TID PRN Muscle Pain 5 05/10/24 08/11/24 Rx days #90 tabs duloxetine 20 mg capsule,delayed 20 mg PO DAILY #30 caps 07/13/24 08/11/24 Rx release New Prescriptions to Start Prescriptions: Allergies Allergy/AdvReac Type Severity Reaction Status Date / Time azithromycin (AZITHROMYCIN) Allergy Mild Unknown Verified 08/11/24 14:23 allergy reaction Assessment and Plan *Assessment and plan (1) Lumbar radiculopathy: Status: Acute Category: Medical Code(s): M54.16 - Radiculopathy, lumbar region (2) Degenerative disc disease, lumbar: Status: Acute Category: Medical Code(s): M51.369 - Other intervertebral disc degeneration, lumbar region without mention of lumbar back pain or lower extremity pain (3) Bilateral sacroiliitis: Status: Acute Category: Medical Code(s): M46.1 - Sacroiliitis, not elsewhere classified Plan I did review over with the patient regarding her updated lumbar imaging with still moderate changes at the L5-S1 level similar to her previous MRI however did not show any nerve impingement. I will make sure that she has refills on all of her medications and I did discuss with her that there is a need occasion that was just recently FDA approved for nonopioid pain relief. I did halfway house counselor her that currently it is not available at local pharmacies just yet however once it is made available that I would like to try her on this medication. Patient acknowledges understanding and agrees with this plan of care. Patient will return to clinic in 3 months. Patient has been instructed to contact the clinic with any concerns before the next appointment. Dr. Buenrostro has reviewed this note and agrees with this plan of care. This note was dictated using voice recognition software and make contain errors or omissions. All injections are used with Lidocaine, Bupivacaine and Depo Medrol. Occasionally urine drug screen is needed to verify patient's compliance with our office pain contract. This is ordered based off specific treatments related to chronic pain with the potential to abuse certain medications.
[2024-08-11 14:23] VITALS: BP 117/87; PULSE 75; RESP 16; O2SAT 95; BMI 30.1
== END 2024-08-11 23:59 | disposition home or self-care (01) ==
PROVIDERS: PCP Nurse Practitioner; Visit Provider Nurse Practitioner Family
DX: M51.16 Intervertebral disc disorders with radiculopathy, lumbar region (principal); M46.1 Sacroiliitis, not elsewhere classified
CPT/HCPCS: 99212; G0463

== ENCOUNTER 2024-08-18 07:53 | Outpatient (CLI) | payer OTHER, SELFPAY ==
--- NOTE | 2024-08-18 07:56 | US_ITS ---
FINAL REPORT TECHNIQUE: Multiple transverse and longitudinal images CLINICAL HISTORY: ABD BLOATING FINDINGS: The gallbladder shows no wall thickening, distention or stone disease. No biliary ductal dilatation is appreciated. No fluid collections are seen. Limited portions of the right liver are unremarkable. Limited portions of the right kidney are unremarkable. IMPRESSION: 1. No evidence of cholelithiasis 2. No evidence of biliary obstruction Reviewed, Interpreted and Dictated by Nano Burrell MD Transcribed by Bibiana Shrestha Authenticated and [facility]
== END 2024-08-18 23:59 | disposition home or self-care (01) ==
LOC: RAD 07:54
PROVIDERS: PCP Nurse Practitioner; Visit Provider Nurse Practitioner
DX: R14.0 Abdominal distension (gaseous) (principal)
CPT/HCPCS: 76705